=== PATIENT | male | born 1965 | race Caucasian/White ===

== ENCOUNTER 2017-05-14 17:36 | Observation (INO) | payer OTHER, SELFPAY ==
[2017-05-14 18:21] LABS: #Eosinphils 0.3 thou/uL (0.0-0.7); #Lymphocytes 2.8 thou/uL (1.20-3.40); #Monocytes 0.6 thou/uL (0.11-0.59); #Neutrophils 4.9 thou/uL (1.40-6.50); %Basophils 0.4 % (0.0-1.0); %Eosinophils 3.1 % (0.0-10.0); %Lymphocytes 32.2 % (21.0-51.0); %Monocytes 7.5 % (0.0-10.0); Hematocrit 41.2 % (42.0-52.0); Mean Platelet Volume 5.9 fL (7.4-10.4); Red Blood Cell (RBC) Count 4.64 mill/uL (4.70-6.10); White Blood Cell (WBC) Count 8.5 thou/uL (4.8-10.8)
[2017-05-14 18:39] LABS: ALT (SGPT) 21 U/L (8-55); AST (SGOT) 15 U/L (5-34); Alkaline Phosphatase 95 U/L (40-150); Anion Gap 10 mmol/L (10-20); BUN (Urea Nitrogen) 13 mg/dL (8.4-25.7); Bilirubin, Total 0.4 mg/dL (0.2-1.2); CK (CPK) 82 U/L (30-200); Calc. Creatinine Clearance 0 mL/min (70-130); Calcium 9.2 mg/dL (7.8-10.44); Carbon Dioxide 31 mmol/L (22-29); Chloride 102 mmol/L (98-107); Estimated GFR-MDRD Greater than 90; Globulin 2.8 g/dL (2.4-3.5); Lipase 24 U/L (8-78); Protein, Total 6.4 g/dL (6.0-8.3)
[2017-05-14] MEDS ORDERED: Nitroglycerin 2% Ointment 1 INCH/1 GM Packet ONE (18:41)
[2017-05-14 18:51] LABS: Troponin I 0.017 ng/mL (< 0.028)
--- NOTE | 2017-05-14 19:31 | RAD ---
PORTABLE AP CHEST: Date: 05-14-17 History: Chest pain. Comparison: 12-24-16 FINDINGS: Post-surgical changes related to CABG are again noted. Cardiac silhouette is magnified by projection . Pulmonary vasculature is within normal limits. The lungs remain clear. There has been no interval change when compared to the prior exam. IMPRESSION: Stable chest without evidence of an acute cardiopulmonary process. POS: [facility]
[2017-05-14] MEDS ORDERED: Acetaminophen 325 MG TAB PO PRN (21:00)
[2017-05-14] MEDS ORDERED: HYDROcodone/Acetaminophen 5/325 mg Tablet PO PRN ×2 (21:00)
[2017-05-14] MEDS ORDERED: Ondansetron ODT 4 MG TAB SL PRN (21:00)
[2017-05-14] MEDS ORDERED: Ondansetron HCl/PF 4 MG/2 ML Vial IVP PRN (21:00)
[2017-05-14] MEDS ORDERED: Nitroglycerin 2% Ointment 1 INCH/1 GM Packet TOP PRN (21:01)
[2017-05-14 21:40] LABS: Troponin I Less than 0.010 ng/mL (< 0.028)
[2017-05-14 22:16] VITALS: BMI 39.3
--- NOTE | 2017-05-14 22:42 | PDOC.EVN ---
Event Note - Event Note Event Note: Attending H&P I personally evaluated the patient and discussed the management with Dr. Gonzalez. I víctor reviewed her written H&P adn it is repeated by me. I agree with the History, Examination, Assessment and Plan documented above with any addition or exceptions noted below. Mr Woodall has known CAD and had severe chest pain with exertion today. We had thought there was syncope as well but with further questioning he denies ever losing consciousness. Cardiac enzymes are neg times 2. EKG shows only abnormal t waves. Patient is pain free currently. Will consult patient's Cardiology in the morning. Anticipate stress test.
[2017-05-15 05:13] LABS: Magnesium 1.9 mg/dL (1.6-2.6); Phosphorus 4.7 mg/dL (2.3-4.7)
--- NOTE | 2017-05-15 07:01 | PDOC.FM ---
- Subjective Subjective: Pt presented initially with chest pain with exertion relieved with nitro. Pt was in his stress test this morning during rounds. Has a hisotry of CAD s/p CABG in 2016. Prior stress test was >1 year ago before CABG. Pt has a very low TSH, being worked up in outpatient setting. - Objective Vital Signs & Weight: Vital Signs (12 hours) Temp Pulse Resp BP BP Pulse Ox 05/15/17 04:00 98 F 67 18 108/69 91 L 05/15/17 00:00 97.6 F 94 12 115/69 92 L 05/14/17 22:21 98.1 F 71 18 05/14/17 21:42 94 L 05/14/17 20:20 98.1 F 71 18 135/80 97 Weight Weight 107.139 kg I&O: 05/14/17 05/15/17 05/16/17 06:59 06:59 06:59 Intake Total 410 Output Total 450 Balance -40 Result Diagrams: 05/14/17 18:01 05/14/17 18:01 Phys Exam - Physical Examination Constitutional: NAD HEENT: PERRLA, moist MMs, sclera anicteric Respiratory: no wheezing, no rales, no rhonchi, clear to auscultation bilateral Cardiovascular: RRR, no significant murmur Gastrointestinal: soft, non-tender, no distention, positive bowel sounds Musculoskeletal: no edema, pulses present Neurological: non-focal, normal sensation Psychiatric: normal affect, A&O x 3 Dx/Plan (1) Atypical chest pain Code(s): R07.89 - OTHER CHEST PAIN Status: Acute (2) CAD (coronary artery disease) Code(s): I25.10 - ATHSCL HEART DISEASE OF [facility] CORONARY ARTERY W/O ANG PCTRS Status: Chronic (3) HLD (hyperlipidemia) Code(s): E78.5 - HYPERLIPIDEMIA, UNSPECIFIED Status: Chronic (4) HTN (hypertension) Code(s): I10 - ESSENTIAL (PRIMARY) HYPERTENSION Status: Chronic - Plan Plan: 51 yo male with CAD s/p CABG with stable angina admitted for ACS workup. 1.Stable angina from worsening CAD disease vs Hyperthyroidism Chest pain described as on exertion relieved by nitroglycerin with three negative trops and ST depression in one lead. Pt with low TSH and elevated free T4 and T3 in outpatient setting with thyroid scan pending. Plan: Repeat EKG, stress test , made NPO at midnight Will start patient on Inderol (propranolol) and dc carvedilol which has shown to be more effective in treating angina worsened by hyperthyroidism. 2.)HTN-hold bb for stress test, restart home meds, also will start Inderol. 3.)HLD-restart home meds 4.)CAD-s/p CABG 2015, see above. 5.)Hyperthyroidism-current workup undergoing in outpatient setting, which could be contributing to patient's chest pain. Will likely dc if patient has a negative stress test.
[2017-05-15] MEDS ORDERED: Aspirin 325 MG TAB PO SCH (09:00)
[2017-05-15] MEDS ORDERED: Lisinopril 20 MG TAB PO SCH (09:00)
[2017-05-15 11:53] VITALS: BP 130/75; TEMP 98.8
--- NOTE | 2017-05-15 11:55 | ADD-PRG ---
DATE OF SERVICE: 05/15/2017 This is an addendum to the note of Dr. Anya Blood. Mr. Woodall is a pleasant 51-year-old white male patient who was admitted with exertional chest pain. He has a history of CABG 1-2 years ago. He is undergoing a stress Myoview testing at this time. I f he does well on this test he will be discharged, otherwise, if abnormal, he will be retained for c ardiac catheterization. In any event, he is currently and has been throughout his hospital stay, pa in free. His troponins are negative x3. His admission EKG showed some nonspecific an ischemic T wa ves, but no acute ischemic changes. I also note that his TSH is less than 0.0025 and we will await the results of a free T4.
--- NOTE | 2017-05-15 15:02 | NM ---
NUCLEAR MEDICINE CARDIAC MYOCARDIAL PERFUSION SPECT EJECTION FRACTION STUDY WALL MOTION CINE: HISTORY: 51-year-old male with chest pain. TECHNIQUE: Number of days: 1 Rest study: Tc99m sestamibi (Cardiolite) dose: 11.0 mCi Pharmacologic stress: adenosine dose: 59.9 mg Stress study: Tc99m sestamibi (Cardiolite) dose: 32.0 mCi FINDINGS: CARDIAC (MYOCARDIAL PERFUSION) SPECT There is a fixed defect at the anteroseptal region near the apex. No reversible defect is identified . EJECTION FRACTION STUDY EF = 54% WALL MOTION CINE There is hypokinesis and paradoxical motion involving the apex and apicoseptal region. There is no significant interval change compared to 07-04-16. IMPRESSION: 1. No evidence of reversible ischemia. 2. Evidence of old infarction/scar at the apicoanteroseptal region. ANTONETTE Lucio POS: [facility]
[2017-05-15] MEDS ORDERED: Atorvastatin Calcium 40 MG TAB PO SCH (21:00)
[2017-05-15] MEDS ORDERED: Prazosin HCl 1 MG CAP PO SCH (21:00)
--- NOTE | 2017-05-16 06:17 | HP-2 ---
CODE STATUS: FULL. PRIMARY CARE PHYSICIAN: Dr. Anastacio Laboy. ATTENDING: Dr. Howard Lucas. RESIDENT: Katya Gonzalez D.O. HISTORIAN: Patient. CHIEF COMPLAINT: Chest pain. HISTORY OF PRESENT ILLNESS: The patient is a 51-year-old male with past medical history of coronary artery disease status post CABG in 2014, hypertension, hyperlipidemia, history of tobacco use and f amily history of [place] in brother and mother, presented with chest pain while on a walk. Pain was a sq ueezing type pain in the left chest with radiation, associated with shortness of breath. No diaphor esis, no nausea or vomiting. Does endorse angina which he may takes nitro for since his CABG in 6. After he has the chest pain, he stopped and cut down and called his for nitro, he became li ghtheaded. arrived with nitro, which partially relieved the pain and EMS arrived shortly after and transferred him to the hospital. He received nitropatch en route and with complete relief. PAST MEDICAL HISTORY: 1. Hypertension. 2. Hyperlipidemia. 3. Coronary artery disease, status post CABG 2 vessel and stents x3. 4. Pseudoseizures. 5. Depression. PAST SURGICAL HISTORY: 1. CABG x2 in 2016. 2. Umbilical hernia repair. 3. Cholecystectomy. ALLERGIES: None. MEDICATIONS: 1. Carvedilol 3.125 mg b.i.d. 2. Effexor 150 mg. 3. Atorvastatin 40 mg. 4. Lisinopril 20 mg. 5. Nitrostat p.r.n. FAMILY HISTORY: Three MIs in brother and alive, and mother of a heart attack in her 60s. SOCIAL HISTORY: Former tobacco user with [id number] history. No alcohol, drug use. REVIEW OF SYSTEMS: A 12-point review of systems was performed including general, eyes, ENT, respira tory, CV, GI, , skin, musculoskeletal, neurologic, psychiatric were positive other than those ment ioned in the HPI. PHYSICAL EXAMINATION: VITAL SIGNS: Blood pressure 110/70, pulse 73, respiratory rate 18, T-max 98.1, pulse ox 94% on room air. Current weight 106 kilograms. GENERAL: Patient is alert and oriented x4, no acute distress. He is obese. EYES: PERRLA, EOMI. ENT: Oropharynx within normal limits. Does have Mallampati 3. NECK: Supple, without lymphadenopathy. CARDIOVASCULAR: Regular rate and rhythm. No murmurs or gallops. Radial pulses 2+. RESPIRATORY: Normal effort, no retractions, clear to auscultation bilaterally. ABDOMEN: Soft, nontender. Bowel sounds present. EXTREMITIES: No clubbing, cyanosis or edema. MUSCULOSKELETAL: Structural within normal limits. NEUROLOGIC: No focal deficits. PSYCHIATRIC: Appropriate. LABORATORY DATA: CBC, white count 8.5, hemoglobin 13.0, hematocrit 41.2, platelets 309. Chemistrie s: Sodium 139, potassium 4.0, chloride 102, CO2 31, BUN 13, creatinine 0.74, glucose 122, calcium 9 .2, total protein 6.4, albumin 3.6, AST 15, ALT 21, alkaline phosphatase 95. CK 82, CK-MB 2.5, trop onin 0.017. IMAGING: EKG shows normal sinus rhythm, unknown changes of ST segment. Chest x-ray with no acute p rocess. ASSESSMENT AND PLAN: 1. Atypical chest pain. We will admit for telemetry observation. Cardiac enzymes negative x1. We will continue to trend q.3 hours. Initial EKG without any ST changes. Repeat EKG in the morning. Check a magnesium and phosphatase, TSH and fasting lipid panel. Heart score of 4. We will do a nu clear medicine stress test in the morning. We will hold beta surinder for that purpose. 2. Coronary artery disease. We will continue aspirin and statin. 3. Hyperlipidemia. Check fasting lipid panel. We will continue statin. 4. Hypertension, stable. Continue lisinopril and monitor. Will hold Coreg for now. 5. Depression. Continue home medications. DISPOSITION AND LENGTH OF HOSPITAL STAY: Less than 2 days. Symptomatic medications will be provided. History and physical exam as well as management was discussed with Dr. Howard Lucas.
--- NOTE | 2017-05-16 12:53 | DIS-2 ---
LOCATION: [facility] DATE OF ADMISSION: 05/14/2017 DATE OF DISCHARGE: 05/15/2017 ADMITTING RESIDENT: Katya Gonzalez DO. ADMITTING ATTENDING: Howard Lucas M.D. DISCHARGE RESIDENT: Anya Bishop MD DISCHARGE ATTENDING: Jesus Perez MD CONSULTATIONS: None. PROCEDURES: EKG shows normal sinus rhythm. Chest x-ray with no acute process. PRIMARY DIAGNOSIS: Atypical chest pain. SECONDARY DIAGNOSES: 1. Coronary artery disease. 2. Hypertension. 3. Depression. DISCHARGE MEDICATIONS: 1. Propranolol 40 mg orally twice a day. 2. Venlafaxine 300 mg oral every morning with breakfast. 3. Prazosin 7 mg oral every morning. 4. Atorvastatin 40 mg oral at bedtime. 5. Aspirin 81 mg orally daily. 6. Lisinopril 20 mg orally daily. 7. Nitroglycerin 0.4 mg sublingual every 5 minutes as needed. DISCONTINUED MEDICATIONS: Carvedilol 3.125 mg oral twice daily. HISTORY OF PRESENT ILLNESS AND HOSPITAL COURSE: This is a 51-year-old male with a past medical history of coronary artery disease, status post CABG in 2014 , hypertension, hyperlipidemia, history of tobacco use, and family history of [place] in the brother and mother presented with chest pain while walking. Pain was a squeezing type of pain in the left chest with radiation associated with shortness of breath. The patient denied diaphoresis, no nausea, or vomiting. The patient does endorse that he has angina, which he takes nitroglycerin for since his CABG in 2015. The patient took nitroglycerin upon feeling this chest pain, which partially relieved the chest pain. EMS arrived shortly after and transferred him to the hospital. The patient received nitroglycerin patch en route with complete relief of the chest pain. The patient's vital signs were within normal limits in the ER. The patient had labs drawn including a CBC which was normal and a chemistry reflecting normal electrolyte value, normal BUN and creatinine, normal glucose. The patient also had his cardiac enzymes drawn, CK-MB was 2.5 with the initial troponin being 0.017. As mentioned above , the patient's EKG showed normal sinus rhythm. The patient was admitted for atypical chest pain. 1. Atypical chest pain: The patient was admitted for atypical chest pain. Again, this pain was left-sided, was on exertion, and relieved with nitroglycerin; however, the patient's troponins were trended x3, which were all negative. The patient's initial EKG did not show any ST changes. The patient was made n.p.o. to prepare for a stress test in the morning to evaluate for new and/or worsening of the patient's coronary artery disease. A TSH, magnesium and phosphorus, and fasting lipid panel were ordered. The patient's HEART score was at 4. The patient's beta surinder was held in anticipation of the procedure. As mentioned before, the patient's troponins x3 were negative. The patient's CK-MB was normal. The patient's CK was normal. The patient was found to have a low TSH, it was 0.0025; however, this is known to the clinic. The patient goes to [facility] and sees Dr. Cronin. The patient's hyperthyroidism is currently being worked up in the outpatient setting; however , hyperthyroidism can be an etiology for chest pain and this patient was found to have a stress test which did not show any new or acute prophecies in comparison to his stress test that he obtained approximately one year ago prior to receiving his CABG. Therefore, it is likely that this patient's chest pain is exacerbated by his hyperthyroidism. The patient, after receiving the results of the stress test, which once again stated that there is no evidence of reversible ischemia and just evidence of an old infarct or scar at the apical anterior septal region, which has no significant interval change compared to his stress test on 07/04/2016. The patient was discharged after receiving these results. It was discussed with the patient the importance of continuing to have his thyroid evaluated in the outpatient setting as it can contribute to cardiac angina. The patient's beta surinder was switched from carvedilol to propranolol because studies have shown that propranolol can help to alleviate chest pain due to hyperthyroidism. This information was relayed to the patient and the patient understood. 2. Coronary artery disease. The patient's aspirin and statin were continued. 3. Hyperlipidemia. A fasting lipid panel was rechecked. The patient's atherosclerotic cardiovascular disease risk was 3.2 reflecting adequate treatment with a statin that he is currently on. 4. Depression. The patient was not having active suicidal ideation, homicidal ideation, or auditory verbal hallucinations. The patient was not exemplifying symptoms of a major depressive episode. The patient's home medication was continued. DISPOSITION: Stable. DISCHARGE INSTRUCTIONS: The patient was discharged home on a heart-healthy diet , activity as tolerated with close followup at [facility] especially in regard to the patient's hyperthyroid disease. BHASKAR
--- NOTE | 2017-05-20 12:00 | STRESS ---
Acquisition Time: 2017-05-15 09:39:15 Total Exercise Time: 00:04:00 Test Indications: CHEST PAIN Medications: Protocol: ADENOSINE Max HR: 078 BPM 46% of Pred: 169 BPM Max BP: 118/078 mmHG Max Work Load: 1.0 METS THE PATIENT WAS INJECTED WITH ADENOSINE. HE DID DEVELOP CHEST PAIN. THERE WAS NO SIGNIFICANT ST DEPRESSION. AWAIT NUCLEAR IMAGES FOR DEFINITIVE DIAGNOSIS. Confirmed by CHARISSE BOTELLO ([id number]), school physical therapist EMILY ISBELL ([id number]) on 05/20/2017 11:59:42 AM Referred By: Jayson FOX Confirmed By:CHARISSE BOTELLO
== END 2017-05-15 14:44 | disposition home or self-care (01) ==
LOC: ERS 17:36 → 2SW 19:30
PROVIDERS: ADMIT Family Medicine; ATTEND Family Medicine
DX: R07.89 Other chest pain (principal); I25.119 Atherosclerotic heart disease of native coronary artery with unspecified angina pectoris; I10 Essential (primary) hypertension; F32.9 Major depressive disorder, single episode, unspecified; E78.5 Hyperlipidemia, unspecified; Z79.82 Long term (current) use of aspirin; Z79.899 Other long term (current) drug therapy; Z88.1 Allergy status to other antibiotic agents; Z88.8 Allergy status to other drugs, medicaments and biological substances; Z95.1 Presence of aortocoronary bypass graft; Z90.49 Acquired absence of other specified parts of digestive tract; Z98.890 Other specified postprocedural states; Z87.891 Personal history of nicotine dependence; Z86.69 Personal history of other diseases of the nervous system and sense organs; Z82.49 Family history of ischemic heart disease and other diseases of the circulatory system
CPT/HCPCS: 36415; 71010; 78452; 80053; 80061; 82553; 83690; 83735; 84100; 84443; 84484; 85025; 93005; 93010; 93017; 94760; A9500; G0378; J0153

== ENCOUNTER 2017-11-12 13:27 | Observation (INO) | payer OTHER ==
[2017-11-12 14:01] LABS: #Eosinphils 0.1 thou/uL (0.0-0.7); #Lymphocytes 2.1 thou/uL (1.20-3.40); #Monocytes 0.5 thou/uL (0.11-0.59); #Neutrophils 3.8 thou/uL (1.40-6.50); %Basophils 0.1 % (0.0-1.0); %Lymphocytes 32.5 % (21.0-51.0); %Monocytes 6.8 % (0.0-10.0); %Neutrophils 58.6 % (42.0-75.0); Hemoglobin 12.2 g/dL (14.0-18.0); Mean Corpuscular HGB CONC 32.9 g/dL (32.0-36.0); Mean Corpuscular Hemoglobin 29.7 pg (27.0-31.0); Mean Corpuscular Volume 90.2 fl (80.0-94.0); Mean Platelet Volume 5.9 fL (7.4-10.4); Platelet Count 250 thou/uL (130-400); RBC Distribution Width 12.2 % (11.5-14.5); Red Blood Cell (RBC) Count 4.11 mill/uL (4.70-6.10); White Blood Cell (WBC) Count 6.5 thou/uL (4.8-10.8)
[2017-11-12 14:25] LABS: ALT (SGPT) 25 U/L (8-55); AST (SGOT) 16 U/L (5-34); Albumin 3.8 g/dL (3.5-5.0); Alkaline Phosphatase 68 U/L (40-150); Anion Gap 8 mmol/L (10-20); BUN (Urea Nitrogen) 14 mg/dL (8.4-25.7); Bilirubin, Total 0.4 mg/dL (0.2-1.2); Calc. Creatinine Clearance 0 mL/min (70-130); Calcium 8.9 mg/dL (7.8-10.44); Carbon Dioxide 29 mmol/L (22-29); Chloride 103 mmol/L (98-107); Estimated GFR-MDRD Greater than 90; Globulin 2.2 g/dL (2.4-3.5); Glucose 115 mg/dL (70-105); Sodium 136 mmol/L (136-145)
[2017-11-12 14:27] LABS: INR-International Normal Ratio 1.1; Prothrombin Time 14.6 SEC (12.0-14.7)
[2017-11-12 14:28] LABS: CKMB 3.6 ng/mL (0-6.6); Troponin I Less than 0.010 ng/mL (< 0.028)
--- NOTE | 2017-11-12 14:50 | CT ---
NONCONTRAST HEAD CT: Date: 11/12/17 COMPARISON: 04/07/17. HISTORY: Stroke-like symptoms. Intermittent paresthesia. 1 hour of left-sided facial droop. TECHNIQUE: Noncontrast head CT is performed from skull base to skull vertex. FINDINGS: No parenchymal hemorrhage or extra-axial hematoma. No midline shift. Basilar cisterns are patent. Bra in volume is age-appropriate. Cortical mayorga-white matter differentiation is preserved. Ventricles and sulci are patent and symmetric. Adequate aeration of the sinuses and mastoid air cells. Calvarium is intact. There is atherosclerosis of intracranial carotid arteries. IMPRESSION: No acute intracranial process. Results of study discussed with Dr. Barboza on 11/12/17 at 1408 hours. CODE CR. POS: [facility]
--- NOTE | 2017-11-12 14:52 | RAD ---
SINGLE VIEW CHEST: Date: 11/12/17 INDICATION: Emergency examination. History of syncopal episode. COMPARISON: Prior exam dated 05/14/17. FINDINGS: There is stable mild cardiomegaly. Midline sternotomy changes are stable. No acute osseous abnormalit ies. Lungs are clear. No pleural effusion or pneumothorax is evident. IMPRESSION: No acute abnormality. POS: [facility]
--- NOTE | 2017-11-12 15:17 | CT ---
CT ANGIOGRAM OF THE HEAD AND NECK: HISTORY: Acute left facial droop. COMPARISON: None. TECHNIQUE: CT angiogram of the head and neck is performed of the axial plane. Sagittal and coronal 3-dimensiona l reformatted images are submitted for interpretation. FINDINGS: There is appropriate post contrast mayorga-white matter differentiation on the head CT. Bilateral ocula r lenses are appropriately located. Both globes are intact. Retrobulbar fat is preserved. Symmetri c attenuation of the topic nerve and ocular rectus muscles. Adequate aeration of the sinuses and mastoid air cells. Aerodigestive tract is patent. No mucosal abnormality. No obvious masses in the neural cavity. Mid line fatty raphae of the tongue is preserved. Epiglottis has a normal caliber. Preepiglottic fat is preserved. No prevertebral soft tissue swelling or mass. Symmetric attenuation of the sternocleidomastoid muscl es. Symmetric attenuation of the parotid and submandibular glands. Thyroid gland is unremarkable. No evidence of lymphadenopathy by size criteria. The cervical spine is patent. There are varying degrees of stenosis due to degenerative change. Imelda luation is limited by technique. Straightening of the normal cervical lordosis is identified. No fr acture. Upper mediastinum is unremarkable. Patchy ground-glass opacities in the upper lobes, nonspecific. CT ANGIOGRAM: There is appropriate enhancement and luminal diameter of the aortic arch. RIGHT CAROTID: The right carotid artery origin, common carotid artery, carotid bifurcation, and internal carotid art devon have appropriate enhancement and luminal diameter. LEFT CAROTID: The left carotid artery origin, common carotid artery, carotid bifurcation, and internal carotid eder ry have appropriate enhancement and luminal diameter. Note, there is medial deviation of both graduate intern al carotid arteries which causes mass effect upon the hypopharynx/posterior oropharynx. Both cervical vertebral bodies are patent. No significant stenosis. The left vertebral artery is mo re dominant. Both subclavian arteries are unremarkable. CT ANGIOGRAM OF THE HEAD: There is symmetric enhancement and luminal diameter of the intracranial internal carotid arteries. ANTERIOR CIRCULATION: Symmetric enhancement and luminal diameter of the A1 and M1 segments. Proximal MCA branches and prox imal A2 segments are unremarkable. POSTERIOR CIRCULATION: Both PICA artery origins are unremarkable. Both vertebral arteries supply a normal-appearing basilar artery. Both P1 segments have symmetric enhancement and luminal diameter. IMPRESSION: Unremarkable CT angiogram of the head and neck. No significant stenosis. Results of the study discussed with Dr. Barboza 11/12/17 at 2:29 p.m. CODE CR POS: [facility]
--- NOTE | 2017-11-12 15:18 | PDOC.FPRHP ---
- History of Present Illness Chief Complaint: Dizziness History of Present Illness: 52 yo male w/ pmh of CAD sp 3V CABG, BPH came in with recent hx of dizziness and low bp today. On way to ER b/c BP was low and was feeling dizzy. Was having spotty vision and floaters which is persistent throughout the day. Was at Dr. Webber's office and was told to come in if SBP got less than 90. Patient was waiting on bus to come to ER, and blacked out. Dizziness has lasted for approximately 3 weeks. Neurology referral was in progress from clinic. CT of head in past has been negative. Concern for migraines as patient has been having recurrent headaches associated with nausea. Patient was taking trileptal from [facility]. Stopped taking medication due to nausea and vomiting 4 days ago which has improved since stopping medication. Denies chest pain, shortness of breath, auras, worsening of headache, numbness or tingling. No changes in speech , but notable change in concentration. Denies diarrhea, constipation. Endorses clamminess which was present this past week while seeing PCP in clinic. Got up to see if bus was there. When bus stopped, he feels he moved too fast, and bus step was off the curb. He misjudged the step and fell. LOC after fall, but did not pass out before the fall. Patient remembers all of the events. 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 - Allergies/Adverse Reactions Allergies Allergy/AdvReac Type Severity Reaction Status Date / Time ciprofloxacin [From Cipro] Allergy Verified 07/02/16 14:55 promethazine [From Phenergan] Allergy Verified 07/02/16 14:55 - Home Medications Medication Instructions Recorded Confirmed Type Aspirin [Aspirin Chewable Tablet] 81 mg PO DAILY 07/02/16 11/12/17 History Atorvastatin Calcium 80 mg PO HS 07/02/16 11/12/17 History Lisinopril 20 mg PO DAILY 07/02/16 11/12/17 History Prazosin HCl 5 mg PO QPM 07/02/16 11/12/17 History Venlafaxine HCl 150 mg PO QAM-WM 07/02/16 11/12/17 History Betamethasone 0.1% Cream [Valisone 1 applic TOP BID 11/12/17 11/12/17 History 0.1% Cream] Carvedilol [Coreg] 3.125 mg PO BID 11/12/17 11/12/17 History Docusate Sodium [Stool Softener] 100 mg PO DAILY 11/12/17 11/12/17 History Oxybutynin ER [Ditropan XL] 10 mg PO DAILY 11/12/17 11/12/17 History Tamsulosin HCl [Flomax] 0.4 mg PO DAILY 11/12/17 11/12/17 History - History PMHx: [place] s/p 3 stents and CABG x2, Hx Gimenez's Palsy (2010), Hypothyroidism, ANALY not currently on CPAP, BPH PSHx: CABG, Cholecystectomy, Hernia repair, Stents x3 FHx: Mom - Aortic valve replacement, Brother - 3 AZ's; unknown history on father 's side Social: Endorses 30 year smoking history. Quit 2 years ago due to [place]. Denies alcohol or illicit drug use. - Review of Systems General: denies: fever/chills, weight/appetite/sleep changes Eyes: reports: vision changes (spotty vision) ENT: denies: nasal congestion, rhinorrhea Respiratory: denies: cough, shortness of breath Cardiovascular: denies: chest pain, palpitation, edema Gastrointestinal: reports: nausea, vomiting. denies: diarrhea, constipation, abdominal pain Genitourinary: denies: incontinence, dysuria Skin: denies: rashes, jaundice Musculoskeletal: denies: pain, tenderness, stiffness Neurological: reports: syncope. denies: numbness, seizure - Vital signs BP: [143/65] HR: [68] RR: [16] Tmax: [98.7 F] Pox: [99]% on [1.5 L] Wt: [ 111.58 kg] - Physical Exam Constitutional: NAD, awake, alert and oriented, well developed HEENT: normocephalic and atraumatic, PERRLA, conjunctiva clear, TM's clear and intact, grossly normal hearing, normal nasal mucosa Neck: supple, trachea midline, no LAD, no JVD, no bruits Chest: no-tender to palpation Heart: RRR, normal S1/S2, no murmurs/rubs/gallops, pulses present Lungs: CTAB, no respiratory distress, good air movement, no wheezing Abdomen: soft, non-tender, bowel sounds present, no masses/distention, no hernias Musculoskeletal: normal structure, ROM grossly normal -Neurological: Patient has decreased sensation along L. face, arm and leg. Strength 4/5 in his upper extremity and lower extremity. CN11 weaker on left. CN7- facial droop noted on left. Possible CN 4-6 defecit with L. eye drooping toward midline. on phone denies any recent dysarthria or speech changes Skin: no rash/lesions, good turgor Heme/Lymphatic: no unusual bruising or bleeding Psychiatric: normal mood and affect, good judgment and insight, intact recent and remote memory FMR H&P: Results - Labs Result Diagrams: 11/12/17 13:52 11/12/17 13:52 Lab results: WBC 6.5 thou/uL (4.8-10.8) 11/12/17 13:52 Hgb 12.2 g/dL (14.0-18.0) L 11/12/17 13:52 Hct 37.1 % (42.0-52.0) L 11/12/17 13:52 MCV 90.2 fl (80.0-94.0) 11/12/17 13:52 Plt Count 250 thou/uL (130-400) 11/12/17 13:52 Neutrophils % 58.6 % (42.0-75.0) 11/12/17 13:52 Sodium 136 mmol/L (136-145) 11/12/17 13:52 Potassium 4.0 mmol/L (3.5-5.1) 11/12/17 13:52 Chloride 103 mmol/L (98-107) 11/12/17 13:52 Carbon Dioxide 29 mmol/L (22-29) 11/12/17 13:52 BUN 14 mg/dL (8.4-25.7) 11/12/17 13:52 Creatinine 0.87 mg/dL (0.6-1.3) 11/12/17 13:52 Glucose 115 mg/dL (70-105) H 11/12/17 13:52 Calcium 8.9 mg/dL (7.8-10.44) 11/12/17 13:52 Total Bilirubin 0.4 mg/dL (0.2-1.2) 11/12/17 13:52 AST 16 U/L (5-34) 11/12/17 13:52 ALT 25 U/L (8-55) 11/12/17 13:52 Alkaline Phosphatase 68 U/L (40-150) 11/12/17 13:52 CK-MB (CK-2) 3.6 ng/mL (0-6.6) 11/12/17 13:52 Serum Total Protein 6.0 g/dL (6.0-8.3) 11/12/17 13:52 Albumin 3.8 g/dL (3.5-5.0) 11/12/17 13:52 - Radiology Interpretation CT scan - head Status: image reviewed by me, report reviewed by me (CT Head- no acute intracranial Process CTA Head and Neck- Unremarkable angiogram. No stenosis noted) FMR H&P: A/P - Problem List (1) TIA (transient ischemic attack) Current Visit: Yes Status: Acute (2) Stroke Current Visit: Yes Status: Acute Code(s): I63.9 - CEREBRAL INFARCTION, UNSPECIFIED Qualifiers: Laterality of affected vessel: left (3) Dizziness Current Visit: Yes Status: Acute Code(s): R42 - DIZZINESS AND GIDDINESS (4) CAD (coronary artery disease) Current Visit: No Status: Chronic Code(s): I25.10 - ATHSCL HEART DISEASE OF [place] CORONARY ARTERY W/O ANG PCTRS Qualifiers: Coronary Disease-Associated Artery/Lesion type: bypass graft [place] vs. transplanted heart: [place] heart Associated angina: without angina Qualified Code(s): I25.810 - Atherosclerosis of coronary artery bypass graft(s) without angina pectoris (5) HLD (hyperlipidemia) Current Visit: No Status: Chronic Code(s): E78.5 - HYPERLIPIDEMIA, UNSPECIFIED (6) HTN (hypertension) Current Visit: No Status: Chronic Code(s): I10 - ESSENTIAL (PRIMARY) HYPERTENSION (7) Hypothyroidism Current Visit: Yes Status: Chronic Code(s): E03.9 - HYPOTHYROIDISM, UNSPECIFIED (8) BPH (benign prostatic hyperplasia) Current Visit: Yes Status: Chronic Code(s): N40.0 - BENIGN PROSTATIC HYPERPLASIA WITHOUT LOWER URINRY TRACT SYMP (9) Bipolar disorder Current Visit: Yes Status: Chronic Code(s): F31.9 - BIPOLAR DISORDER, UNSPECIFIED - Plan 1)TIA/Stroke- having new left sided defecits. Hx of CAD and 3 week hx of dizziness -Possible hemiplegic migraine -Consult Neurology- Nithya- will follow recs -CTA head/neck- negative -Will get ECHO and MRI brain -Neurochecks -ASA and statin. -FLP pending- may want to increase dose of statin. Will check HgbA1c -Tele monitoring. 2)HTN -holding all htn medicine and bph medicines for next 24 hours to allow for permissive htn 3)HLD -FLP pending. continue home statin 4) Recent dizziness -Neurology consulted. -Possible recent syncopal episode. Orthostatics pending. -MRI pending -Possibly migraine related. Tylenol for pain 5) Hypothyroidism -Pt recent TSH at outside clinic around 10. Was started on levothyroxine but patient was not taking medicine. Will recheck TSH and start medication at this time. 6) BPH -holding bph medicines for next 24 hours due to effect on blood pressure. 7)CAD with hx of 3V CABG -Holding HTN medicines -Tele monitoring 8)Bipolar Disorder -Recenlty put on Trileptal by [facility] but has not been taking due to nausea and vomiting. -continue other home meds FMR H&P: Upper Level - Pertinent history 52 yo male w/ pmh of CAD sp 3V CABG, BPH presented to ED after episode of syncope while waiting to board a bus on his way to the cardiology office. He reports that he has had several episodes of syncope most recently about 4-5 mo ago. Reports that he has been having a bad headaches posteriorly for about 3 weeks. Saw his PCP about this and was supposed to follow up with neuro but hasn' t. No hx of migraines, denies light and sound sensitivity. 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 Reports that he has also been having L sided facial numbness, L arm weakness and b/l LE tingling for the same amount of time as the headache has been present. See internal audit director HPI for further details. - Pertinent findings general: obese, AOX3, NAD cardiac: bradycardic lungs: CTA neuro: CN II-IV intact, V reduced on L side, -XII intact, +dysdiaochokinesia with L hand, reduced heel puga dexterity of L heel, neg Romberg - Plan Date/Time: 11/12/17 1515 Pertinent A/P: 1. r/o CVA- vs atypical migraine given duration of symptoms. CT head neg. Will order CTA head/neck, MRI brain, echo, consult stroke team. NPO pending swallow study. Will give migraine cocktail to see if they alleviate his symptoms. Risk stratify with lab work TSH, A1c, Mg, Phos. Hx of Gimenez's palsy 2. CAD-continue home meds, pt has had recent neg stress, learning to cope with chronic angina has been following with Dr. Webber 3. Hypothyroidism-most recent TSH was 10, has not started synthroid 4. Hx of seizures-not on antiepileptics as he thought these were causing his headache-will hold for now, pt to follow up with neuro 5. Bipolar/PTSD-continue home meds 6. Htn 7. Hld I, Mary, have evaluated this patient and agree with findings/plan as outlined by internal audit director resident. Pertinent changes/additions are listed here. Attending Addendum - Attending Addendum Date/Time: 11/13/17 1113 I personally evaluated the patient and discussed the management with Dr. Rocha. I agree with the History, Examination, Assessment and Plan documented above with any addition or exceptions noted below. 52 y.o. WM with h/o Bipolar, Gimenez's Palsy, Hypothyroidism, CAD s/p CABG, BPH with obstructive symptoms--treated recently with Oxybutinin and Tamsulosin. Here with eval of syncope in light of recent persistent BARKLEY"s and hypotension. DDx: TIA vs. Migraine. Possible medication SE.
[2017-11-12] MEDS ORDERED: Enoxaparin Sodium 40 MG/0.4 ML SYRINGE SC SCH (17:18)
[2017-11-12] MEDS ORDERED: Aspirin 81 mg Enteric Coated Tablet PO SCH (17:18)
[2017-11-12] MEDS ORDERED: Ketorolac Tromethamine 30 MG/ML VIAL IVP SCH (17:18)
[2017-11-12] MEDS ORDERED: diphenhydrAMINE 25 MG CAP PO SCH (17:18)
[2017-11-12] MEDS ORDERED: Metoclopramide HCl 10 MG TAB PO SCH (17:18)
[2017-11-12] MEDS ORDERED: hydrALAZINE 20 MG/ML VIAL SLOW IVP PRN (17:18)
[2017-11-12 17:25] VITALS: BMI 42.4
[2017-11-12 17:38] LABS: Hemoglobin A1c 5.3 % (4.0-6.0)
[2017-11-12 18:05] LABS: Troponin I Less than 0.010 ng/mL (< 0.028)
[2017-11-12] MEDS ORDERED: Atorvastatin Calcium 40 MG TAB PO SCH (21:00)
[2017-11-12 21:07] LABS: Troponin I Less than 0.010 ng/mL (< 0.028)
--- NOTE | 2017-11-13 05:44 | PDOC.FM ---
- Subjective Subjective: Patient doing well this AM. No significant overnight events. NIH score has been between 2-3. Patient still endorses right sided weakness. He states that it is better this morning, but he thinks it will probably just get worse throughout the day. He denies any headache this morning. He does state his headaches are normally worse in the mornings and he describes a band-like pain originating from suboccipital region when the headaches are present. Nothing has seemed to help the headaches in the past, but using O2 at night prevented him from waking up with a headache. Of note, patient does have untreated sleep apnea. Patient was able to transfer to chair without any assistance. - Objective MAR Reviewed: Yes Vital Signs & Weight: Vital Signs (12 hours) Temp Pulse Resp BP BP Pulse Ox 11/13/17 03:58 98.1 F 77 18 131/77 96 11/12/17 23:45 98.0 F 65 16 147/84 H 95 11/12/17 20:01 98.0 F 99 16 117/68 91 L 11/12/17 20:00 98.0 F 65 16 147/84 H 117/68 91 L Weight Weight 115.666 kg I&O: 11/11/17 11/12/17 11/13/17 06:59 06:59 06:59 Output Total 0 Balance 0 Result Diagrams: 11/12/17 13:52 11/12/17 13:52 EKG Reviewed by me: No Radiology Reviewed by me: Yes <Mindy Rocha - Last Filed: 11/13/17 08:17> - Objective Vital Signs & Weight: Vital Signs (12 hours) Temp Pulse Pulse Pulse Pulse Pulse Resp 11/13/17 12:00 97.7 F 70 16 11/13/17 08:51 59 L 60 62 60 11/13/17 07:30 98.2 F 58 L 20 11/13/17 07:00 98.1 F 77 18 11/13/17 03:58 98.1 F 77 18 BP BP BP BP BP BP Pulse Ox 11/13/17 12:00 164/90 H 95 11/13/17 08:51 150/92 H 161/95 H 163/106 H 152/88 H 11/13/17 07:30 142/85 H 96 11/13/17 07:00 131/77 96 11/13/17 03:58 131/77 96 Weight Weight 115.666 kg I&O: 11/12/17 11/13/17 11/14/17 06:59 06:59 06:59 Intake Total 500 Output Total 650 Balance -150 Result Diagrams: 11/12/17 13:52 11/12/17 13:52 <AyannaGiuliana - Last Filed: 11/13/17 13:17> Phys Exam - Physical Examination Constitutional: NAD HEENT: PERRLA, moist MMs Neck: supple Respiratory: clear to auscultation bilateral Cardiovascular: RRR, no significant murmur Gastrointestinal: soft, non-tender, positive bowel sounds Musculoskeletal: no edema, pulses present Strength 4/5 on LUE and LLE; uncertain if poor pt effort Patient unable to puff out cheek on left, no dysarthria, no facial droop. Psychiatric: normal affect Skin: no rash, cap refill <2 seconds <Mindy Rocha - Last Filed: 11/13/17 08:17> Dx/Plan (1) Stroke Code(s): I63.9 - CEREBRAL INFARCTION, UNSPECIFIED Status: Acute QualifierTitle: Laterality of affected vessel: left (2) BPH (benign prostatic hyperplasia) Code(s): N40.0 - BENIGN PROSTATIC HYPERPLASIA WITHOUT LOWER URINRY TRACT SYMP Status: Chronic (3) Bipolar disorder Code(s): F31.9 - BIPOLAR DISORDER, UNSPECIFIED Status: Chronic (4) Hypothyroidism Code(s): E03.9 - HYPOTHYROIDISM, UNSPECIFIED Status: Chronic (5) CAD (coronary artery disease) Code(s): I25.10 - ATHSCL HEART DISEASE OF [place] CORONARY ARTERY W/O ANG PCTRS Status: Chronic QualifierTitle: Coronary Disease-Associated Artery/Lesion type: bypass graft [place] vs. transplanted heart: [place] heart Associated angina: without angina Qualified Code(s): I25.810 - Atherosclerosis of coronary artery bypass graft(s) without angina pectoris (6) HLD (hyperlipidemia) Code(s): E78.5 - HYPERLIPIDEMIA, UNSPECIFIED Status: Chronic (7) HTN (hypertension) Code(s): I10 - ESSENTIAL (PRIMARY) HYPERTENSION Status: Chronic - Plan Plan: 1) TIA/Stroke- having new left sided deficits. Hx of CAD and 3 week hx of dizziness. -Possible hemiplegic migraine -Neurology (Nithya) consulted; appreciate recs -CTA head/neck negative -Echo pending -MRI negative -Neurochecks q4H -NIH score of 2-3 -Continue ASA and statin -HgA1c 5.3 -Tele monitoring 2) HTN -Holding all htn medicine and bph medicines for next 24 hours to allow for permissive htn 3) HLD -ASCVD of 5.3% -Continue home statin 4) Dizziness with possible syncopal episode -Neurology consulted; appreciate recs -Possible recent syncopal episode -Orthostatics pending -MRI negative for acute infarct -Possibly migraine related; migraine protocol given -Tylenol for pain -No post-ictal state to suggest seizure -Echo pending 5) Hypothyroidism -Pt recent TSH at outside clinic around 10 -Was started on levothyroxine but patient was not taking medication -Will recheck TSH and start medication at this time 6) BPH -Holding BPH medications for next 24 hours due to effect on blood pressure. 7) CAD with hx of 3V CABG -Holding HTN medications -Tele monitoring 8) Bipolar Disorder -Recenlty put on Trileptal by [facility] but has not been taking due to nausea and vomiting -Continue other home meds Dispo: Workup has been negative for stroke. May be migraine related. Will await neurology recommendations and echo results. <Mindy Rocha - Last Filed: 11/13/17 08:17> Attending Addendum - Attending Addendum Date/Time: 11/13/17 1316 I personally evaluated the patient and discussed the management with Dr. Rocha. I agree with the History, Examination, Assessment and Plan documented above with any addition or exceptions noted below. The patient's MRI was negative for stroke. He is working with pt. This may be more of an atypical migraine. Will await recs from Dr. Gaxiola. Will restart home medications. <Giuliana Urena - Last Filed: 11/13/17 13:17>
[2017-11-13 05:48] LABS: Cardiac Risk 2.7 (Less than 4.5)
--- NOTE | 2017-11-13 08:24 | MRI ---
BRAIN MRI WITHOUT CONTRAST: HISTORY: Left-sided weakness. Left facial droop. Stroke. COMPARISON: None. TECHNIQUE: Brain MRI is performed without intravenous Gadolinium administration. Multisequential, multiplanar i maging is performed. FINDINGS: No hemorrhage on the axial gradient echo sequence. Calvarium has a normal T1 marrow signal intensity. Midline brain parenchymal structures are unremark able. Mucosal disease involving both maxillary sinuses. Central arterial flow voids are maintained. No re stricted diffusion. Mild mucosal disease of the maxillary sinuses is noted, the right greater than the left. There are s mall mucous retention cysts in the left maxillary sinus. Partially empty sella is identified. IMPRESSION: Absent restricted diffusion. No acute infarct. POS: [facility]
[2017-11-13] MEDS ORDERED: Cyclobenzaprine 10 MG TAB PO SCH (08:45)
[2017-11-13] MEDS ORDERED: Enoxaparin Sodium 40 MG/0.4 ML SYRINGE SC SCH (09:00)
[2017-11-13] MEDS ORDERED: Aspirin 81 mg Enteric Coated Tablet PO SCH (09:00)
[2017-11-13] MEDS ORDERED: Levothyroxine Sodium 50 MCG TAB PO SCH (09:00)
[2017-11-13] MEDS ORDERED: Acetaminophen 325 MG TAB PO PRN (09:47)
[2017-11-13 16:11] VITALS: BP 150/94; TEMP 98.1
--- NOTE | 2017-11-13 19:41 | CON ---
DATE OF CONSULTATION: 11/13/2017 CONSULTING PHYSICIAN: [facility]. 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 PLAN: 1. Topamax 50 mg twice a day. 2. Maxalt 10 mg twice a day as needed for headache. Mr. Woodall is a middle-aged gentleman with a past history of hypertension. Over the last 3 weeks, he has been having daily headache. They usually start in the occipital area and radiate forward. They are associated with some dizziness. He has not had any nausea or vomiting, but he reports being quit e debilitated by the intensity of the pain. These have been occurring both day and night. He did no t have any provoking illness or injury. He came into the hospital for evaluation. A CTA of the mag[place] tids and cerebral vessels were both unremarkable. He had an MRI of the brain, which was normal. He has a history of hypothyroidism, has an elevated TSH level. His lipid panel was unremarkable. PAST MEDICAL HISTORY: Otherwise, positive for some psychiatric issues. MEDICATION LIST: Lisinopril, Effexor, atorvastatin, Coreg, prazosin and aspirin. ALLERGIES: CIPRO and PHENERGAN. SOCIAL HISTORY: Unremarkable. FAMILY HISTORY: Negative for migraine. REVIEW OF SYSTEMS: Positive for past history of Gimenez's palsy. PHYSICAL EXAMINATION: GENERAL: He is an obese middle-aged man lying in bed in no distress. VITAL SIGNS: Stable. He is afebrile. HEENT: Pupils equal and reactive. Conjunctivae clear. Oropharynx is clear. NECK: Supple. EXTREMITIES: No edema. NEUROLOGIC: He is alert, appropriate. His speech is fluent and clear. His exam is nonfocal. SUMMARY: This is a middle-aged man with complaints of daily debilitating headache for the last 3 wee ks with nothing remarkable on his workup. I suspect that this could be vascular in origin that are p sychogenic. I would be happy to follow up with him as an outpatient.
[2017-11-13] MEDS ORDERED: Betamethasone 0.1% Cream 45 GM TUBE TOP SCH (21:00)
[2017-11-13] MEDS ORDERED: Prazosin HCl 1 MG CAP PO SCH (21:00)
[2017-11-13] MEDS ORDERED: Carvedilol 3.125 MG TAB PO SCH (21:00)
[2017-11-13] MEDS ORDERED: Atorvastatin Calcium 40 MG TAB PO SCH (21:00)
[2017-11-14] MEDS ORDERED: Levothyroxine Sodium 50 MCG TAB PO SCH (06:00)
[2017-11-14] MEDS ORDERED: Tamsulosin HCl 0.4 MG CAP PO SCH (09:00)
[2017-11-14] MEDS ORDERED: Docusate 100 MG CAP PO SCH (09:00)
[2017-11-14] MEDS ORDERED: Oxybutynin ER 5 MG TAB PO SCH (09:00)
[2017-11-14] MEDS ORDERED: Lisinopril 20 MG TAB PO SCH (09:00)
--- NOTE | 2017-11-14 14:38 | DIS-2 ---
DATE OF ADMISSION: 11/12/2017 DATE OF DISCHARGE: 11/13/2017 ADMITTING ATTENDING: Dr. Jose Fowler. DISCHARGE ATTENDING: Dr. Giuliana Urena. RESIDENT: Dr. Mindy Rocha CONSULTATIONS: 1. Neurology, Dr. Jurgen Gaxiola 2. Stroke team. INPATIENT PROCEDURES/OPERATIONS: 1. Brain CT: No acute intracranial process. 2. CT angiography: Unremarkable CT angiogram of the head and neck. No significant stenosis. 3. CT [place] angiogram with contrast: Unremarkable CT angiogram of the head and neck: No significant stenosis. 4. Chest x-ray, no acute abnormality. 5. Brain MRI; absent restricted diffusion. No acute infarct. PRIMARY DIAGNOSIS: Probable cluster migraine. SECONDARY DIAGNOSES: 1. Hypertension. 2. Hyperlipidemia. 3. Hypothyroidism. 4. Benign prostatic hypertrophy. 5. Coronary artery disease with history of 3-vessel coronary artery bypass graft. 6. Bipolar disorder. DISCHARGE MEDICATIONS: 1. Levothyroxine 50 mcg oral q.a.m. 2. Maxalt 10 mg oral twice daily as needed for headache. 3. Topamax 50 mg oral twice daily. 4. Venlafaxine 150 mg oral every morning with breakfast. 5. Prazosin 5 mg every evening. 6. Atorvastatin calcium 80 mg oral at bedtime. 7. Aspirin 81 mg oral daily. 8. Lisinopril 20 mg oral daily. 9. Oxybutynin ER 10 mg oral daily. 10. Docusate sodium 100 mg oral daily. 11. Tamsulosin HCL 0.4 mg oral daily. 12. Carvedilol 3.125 mg oral twice daily. 13. Betamethasone 0.1% cream one application topical twice daily. HISTORY OF PRESENT ILLNESS/HOSPITAL COURSE: Mr. Woodall is a middle-aged gentleman with past medical history of coronary artery disease status post CABG as well as hypertension who presents with a 3 week history of daily headaches. They usually start in the occipital area and radiate forward. They are associated with some dizziness. He has not had nausea or vomiting, but reported debilitation by the intensity of the pain. The patient states that these have been occurring both day and night. He does not have any provoking illness or injury. He did come into the hospital for evaluation, partly because of the headaches and partly due to the fact that his systolic blood pressure was in the 90s and he was told to come to the emergency department if systolic blood pressure dropped below 90. Of note, on the way to the hospital, he did have an episode of when he was getting onto the bus and ended up falling and potentially knocking himself out. He had no postictal state and recalled the events in full detail. Upon arrival to the emergency department the stroke team was called. The patient had a CT of the brain which was negative. Additionally, he had a CT of the head and neck, which also did not show any significant stenosis of the carotids or cerebral vessels. The next morning, he had an MRI of the brain for further evaluation which was also normal. The patient remained stable throughout the course of his hospital stay. He did have some presenting weakness in the left upper and lower extremities as well as some potential left facial droop. These symptoms did persist throughout his hospital stay; however, the exam each time was rather inconsistent. It was uncertain whether or not the exam was altered by poor patient effort. The patient was able to ambulate with minimal assistance. NIH scale remained between 2-3 without any concerns for CVA. For completion sake, Neurology was consulted. Dr. Gaxiola did evaluate the patient and based on the negative studies and the nature of his chronic intense headaches, it is presumed that these symptoms may be a manifestation of cluster migraines The patient was started on Topamax 50 mg twice a day as well as Maxalt 10 mg twice a day as needed for headaches per Neurology. Dr. Gaxiola does have a suspicion that some of the symptom manifestations could be psychogenic. He is to continue following with Neurology as needed for migraines and to further evaluate the patient's current symptoms. Based on all the negative studies, a CVA was ruled out. The patient will be treated for migraine headaches per Neurology and is to follow up with his primary care physician, Dr. Anastacio Laboy, upon discharge from the hospital. The patient's blood pressure was elevated upon admission; however, blood pressure medications were held to allow for permissive hypertension. Upon restarting his blood pressure medications, his blood pressures did remain slightly elevated. Likely once his blood pressure medications have time to take effect again, the blood pressure will normalize. The patient can follow up with primary care physician to ensure the blood pressure remains controlled. Of note, the patient was noted to have a TSH of 10.4668. Based on clinic records this is something that has been evaluated previously. The patient did have a normal T3, and free T4 in clinic. He was supposed to be started on levothyroxine 50 mcg per his primary care physician, but did not start taking that medication. He was started on that medication while hospitalized per PCP recommendations. Additionally, a fasting lipid panel was performed to evaluate for hyperlipidemia. Total cholesterol was noted to be 119 with an LDL of 61 and HDL 44. He is already taking his statin medication for coronary artery disease. His hemoglobin A1c was also checked, which was noted to be 5.3. DISPOSITION: Stable. DISCHARGE INSTRUCTIONS: 1. Location: Home. 2. Diet: Heart healthy diet. 3. Activity: No restrictions. 4. Followup: The patient is to follow up with Dr. Gaxiola, the neurologist in 14 days. Additionally, he is to follow up with his primary care physician, Dr. Anastacio Laboy within 7 days of discharge from the hospital to ensure resolution and improvement in symptoms. This was discussed with patient at length. He was in understanding and agreeable with the plan. BHASKAR
== END 2017-11-13 16:50 | disposition home or self-care (01) ==
LOC: ERS 13:27 → 2SE 15:34
PROVIDERS: ADMIT Family Medicine; ATTEND Family Medicine
DX: R51 Headache (principal); R42 Dizziness and giddiness; I10 Essential (primary) hypertension; E03.9 Hypothyroidism, unspecified; N40.0 Benign prostatic hyperplasia without lower urinary tract symptoms; F31.9 Bipolar disorder, unspecified; I25.10 Atherosclerotic heart disease of native coronary artery without angina pectoris; E78.5 Hyperlipidemia, unspecified; Z88.1 Allergy status to other antibiotic agents; Z88.8 Allergy status to other drugs, medicaments and biological substances; Z79.82 Long term (current) use of aspirin; Z79.899 Other long term (current) drug therapy; Z86.69 Personal history of other diseases of the nervous system and sense organs
CPT/HCPCS: 36415; 36416; 70450; 70496; 70498; 70551; 71045; 80053; 80061; 82553; 83036; 83735; 84443; 84484; 85025; 85610; 93005; 93306; 96372; 96374; G0378; G8978-GP-CJ; G8979-GP-CI; G8987-GO-CH; G8988-GO-CH; G8989-GO-CH; G8996-GN-CH; G8997-GN-CH; J1650; J1885

== ENCOUNTER 2018-08-17 16:38 | Observation (INO) | payer OTHER ==
--- NOTE | 2018-08-17 17:04 | RAD ---
UPRIGHT PORTABLE CHEST ONE VIEW 08/17/18 HISTORY: 52-year-old male with history of chest tightness with shortness of breath, left sided chest pain. COMPARISON: 11/12/17. FINDINGS: Heart size is within normal limits of size. Postop midline sternotomy. No confluent pneumonia, overt edema or pleural effusion. IMPRESSION: No acute intrathoracic disease. Postop midline sternotomy. POS: ROSALVA
[2018-08-17 17:17] LABS: #Basophils 0.1 thou/uL (0.0-0.2); #Eosinphils 0.2 thou/uL (0.0-0.7); #Lymphocytes 2.5 thou/uL (1.20-3.40); #Monocytes 0.6 thou/uL (0.11-0.59); #Neutrophils 4.8 thou/uL (1.40-6.50); %Basophils 1.1 % (0.0-1.0); %Eosinophils 2.7 % (0.0-10.0); %Lymphocytes 30.3 % (21.0-51.0); %Neutrophils 58.9 % (42.0-75.0); Hemoglobin 12.2 g/dL (14.0-18.0); Mean Corpuscular HGB CONC 32.5 g/dL (32.0-36.0); Mean Corpuscular Hemoglobin 28.9 pg (27.0-31.0); Mean Corpuscular Volume 88.7 fL (78.0-98.0); Mean Platelet Volume 6.5 fL (7.4-10.4); Platelet Count 286 thou/uL (130-400); RBC Distribution Width 12.8 % (11.5-14.5); Red Blood Cell (RBC) Count 4.23 mill/uL (4.70-6.10); White Blood Cell (WBC) Count 8.1 thou/uL (4.8-10.8)
[2018-08-17 17:41] LABS: ALT (SGPT) 22 U/L (8-55); AST (SGOT) 18 U/L (5-34); Albumin 3.8 g/dL (3.5-5.0); Alkaline Phosphatase 67 U/L (40-150); Anion Gap 16 mmol/L (10-20); BUN (Urea Nitrogen) 18 mg/dL (8.4-25.7); Bilirubin, Total 0.3 mg/dL (0.2-1.2); CK (CPK) 226 U/L (30-200); Calc. Creatinine Clearance 0 mL/min (70-130); Calcium 8.9 mg/dL (7.8-10.44); Carbon Dioxide 22 mmol/L (22-29); Chloride 107 mmol/L (98-107); Estimated GFR-MDRD Greater than 90; Globulin 2.6 g/dL (2.4-3.5); Glucose 132 mg/dL (70-105); Lipase 40 U/L (8-78); Potassium 3.8 mmol/L (3.5-5.1); Protein, Total 6.4 g/dL (6.0-8.3); Sodium 141 mmol/L (136-145)
--- NOTE | 2018-08-17 18:42 | PDOC.FPRHP ---
- History of Present Illness Chief Complaint: CP History of Present Illness: 52yo M with significant PMH of CAD with CABG 2015 and 3 stents presenting with complaint of substernal CP with radiation to L shoulder. 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 Burning quality pain of moderate severity. Related dizziness and diaphoresis. No significant transforming factors, not alleviated by rest. ED Course: ASA - Allergies/Adverse Reactions Allergies Allergy/AdvReac Type Severity Reaction Status Date / Time ciprofloxacin [From Cipro] Allergy Verified 08/17/18 20:11 promethazine [From Phenergan] Allergy Verified 08/17/18 20:11 - Home Medications Medication Instructions Recorded Confirmed Type Aspirin [Aspirin Chewable Tablet] 81 mg PO DAILY 07/02/16 08/17/18 History Atorvastatin Calcium 80 mg PO HS 07/02/16 08/17/18 History Lisinopril 20 mg PO DAILY 07/02/16 08/17/18 History Venlafaxine HCl 300 mg PO QAM-WM 07/02/16 08/17/18 History Betamethasone 0.1% Cream [Valisone 1 applic TOP BID 11/12/17 08/17/18 History 0.1% Cream] Carvedilol [Coreg] 3.125 mg PO BID 11/12/17 08/17/18 History Oxybutynin ER [Ditropan XL] 10 mg PO DAILY 11/12/17 08/17/18 History Tamsulosin HCl [Flomax] 0.4 mg PO DAILY 11/12/17 08/17/18 History Levothyroxine Sodium [Synthroid] 50 mcg PO 0600 #30 tab 11/13/17 08/17/18 Rx Rizatriptan Benzoate [Maxalt] 10 mg PO BID #60 tablet 11/13/17 08/17/18 Rx Topiramate [Topamax] 50 mg PO BID #60 tab 11/13/17 08/17/18 Rx - History PMHx: CAD s/p CABG 2016 w/ 3 stents, seizure d/o, HTN, hypothyroid, bph PSHx: CABG, selin, hernia FHx: CAD: mother @ 69yo, brother had first RI at 30yo Social: denies tobacco/etoh/drugs - Review of Systems General: denies: fever/chills, fatigue Eyes: denies: eye pain, vision changes ENT: denies: nasal congestion, rhinorrhea Respiratory: denies: cough, shortness of breath Cardiovascular: reports: chest pain. denies: palpitation, edema, orthopnea Gastrointestinal: denies: nausea, vomiting Genitourinary: denies: dysuria, polyuria Skin: denies: rashes, lesions Musculoskeletal: denies: pain, tenderness Neurological: denies: syncope, seizure Psychological: denies: anxiety, depression - Vital signs BP: [153/95] HR: [68] RR: [21] Tmax: [98.1] Pox: [96]% on [ra] Wt: [99kg] - Physical Exam Constitutional: NAD, awake, alert and oriented, well developed HEENT: normocephalic and atraumatic, EOMI, grossly normal vision, grossly normal hearing Neck: supple, trachea midline Chest: no-tender to palpation Heart: RRR, normal S1/S2 Lungs: CTAB, no respiratory distress Abdomen: soft, non-tender Musculoskeletal: normal structure, normal tone Neurological: no focal deficit, normal sensation Skin: no rash/lesions, good turgor Heme/Lymphatic: no purpura, no petechia Psychiatric: normal mood and affect, good judgment and insight FMR H&P: Results - Labs Result Diagrams: 08/17/18 16:59 08/18/18 04:57 Lab results: WBC 8.1 thou/uL (4.8-10.8) 08/17/18 16:59 Hgb 12.2 g/dL (14.0-18.0) L 08/17/18 16:59 Hct 37.5 % (42.0-52.0) L 08/17/18 16:59 MCV 88.7 fL (78.0-98.0) 08/17/18 16:59 Plt Count 286 thou/uL (130-400) 08/17/18 16:59 Neutrophils % 58.9 % (42.0-75.0) 08/17/18 16:59 Sodium 141 mmol/L (136-145) 08/17/18 16:59 Potassium 3.8 mmol/L (3.5-5.1) 08/17/18 16:59 Chloride 107 mmol/L (98-107) 08/17/18 16:59 Carbon Dioxide 22 mmol/L (22-29) 08/17/18 16:59 BUN 18 mg/dL (8.4-25.7) 08/17/18 16:59 Creatinine 0.82 mg/dL (0.7-1.3) 08/17/18 16:59 Glucose 132 mg/dL (70-105) H 08/17/18 16:59 Calcium 8.9 mg/dL (7.8-10.44) 08/17/18 16:59 Total Bilirubin 0.3 mg/dL (0.2-1.2) 08/17/18 16:59 AST 18 U/L (5-34) 08/17/18 16:59 ALT 22 U/L (8-55) 08/17/18 16:59 Alkaline Phosphatase 67 U/L (40-150) 08/17/18 16:59 Creatine Kinase 226 U/L (30-200) H 08/17/18 16:59 Serum Total Protein 6.4 g/dL (6.0-8.3) 08/17/18 16:59 Albumin 3.8 g/dL (3.5-5.0) 08/17/18 16:59 Lipase 40 U/L (8-78) 08/17/18 16:59 FMR H&P: A/P - Problem List (1) Chest pain Current Visit: No Status: Acute Code(s): R07.9 - CHEST PAIN, UNSPECIFIED (2) BPH (benign prostatic hyperplasia) Current Visit: No Status: Chronic Code(s): N40.0 - BENIGN PROSTATIC HYPERPLASIA WITHOUT LOWER URINRY TRACT SYMP (3) CAD (coronary artery disease) Current Visit: No Status: Chronic Code(s): I25.10 - ATHSCL HEART DISEASE OF [place] CORONARY ARTERY W/O ANG PCTRS Qualifiers: Coronary Disease-Associated Artery/Lesion type: bypass graft [place] vs. transplanted heart: tribal heart Associated angina: without angina Qualified Code(s): I25.810 - Atherosclerosis of coronary artery bypass graft(s) without angina pectoris (4) HLD (hyperlipidemia) Current Visit: No Status: Chronic Code(s): E78.5 - HYPERLIPIDEMIA, UNSPECIFIED (5) HTN (hypertension) Current Visit: No Status: Chronic Code(s): I10 - ESSENTIAL (PRIMARY) HYPERTENSION (6) Hypothyroidism Current Visit: No Status: Chronic Code(s): E03.9 - HYPOTHYROIDISM, UNSPECIFIED - Plan 52yo M with significant pmh of CAD presenting with typical CP Typical CP likely 2/2 Stable Angina -Pt has multiple risk factors including previous CAD s/p CABG. He presents with typical symptoms and a HEART score of 6. Pt's last cardiolite stress test was in May of 2017 and just showed scarring from previously known CAD. P- trend cardiac enzymes - stress test in AM - will consider cards consult considering significant cardiac hx - Restart home medications - hold home coreg - NPO at midnight. Seizure disorder A- Pt reports prior workup by neuro and no specific diagnosis other than seizure d/o. currently on Topimax. Stable P- continue home meds HTN - home meds Hypothyroid - home meds HLD - home statin BPH - home flomax FULL code PPx: Lovenox for VTE disposition: Admit to telemetry observation FMR H&P: Upper Level - Pertinent history 52 yo CM with a PMH of CAD s/p 3vCABG, HTN, HLD, hypothyroidism, BPH, and bipolar disorder presenting with CP that began earlier today while at work. Pt describes CP as exertional substernal pressure with radiation to the left shoulder that did not improve with rest. He does think the pain improved with ASA and nitro. Pt denies fevers/chills, abd pain, NVD, dysuria, rash, sick contacts. - Pertinent findings Gen: obese in NAD CV: RRR Resp: unlabored, CTAB - Plan Date/Time: 08/17/181841 I, Donnell Rene MD PGY3, have evaluated this patient and agree with findings/ plan as outlined by manufacturing intern resident. Pertinent changes/additions are listed here. 1. Typical CP likely 2/2 Stable Angina -Pt has multiple risk factors including previous CAD s/p CABG. He presents with typical symptoms and a HEART score of 6. -Admit to telemetry observation and trend cardiac enzymes. -Pt's last cardiolite stress test was in May of 2017 and just showed scarring from previously known CAD. -Will plan on stress test in AM but will have low threshold for cardiology consult for worsening enzymes or unstable angina. -Restart home medications, hold any beta blockers, NPO at midnight. See manufacturing intern H&P for other chronic medical conditions. FULL code PPx: Lovenox for VTE, no GI indicated. disposition: Admit to telemetry observation for anticipated length of stay less than two midnights, pending clinical course. Addendum - Attending - Attending Attestation Date/Time: 08/17/181940 I personally evaluated the patient and discussed the management with Dr. Martel. I agree with the History, Examination, Assessment and Plan documented above with any addition or exceptions noted below. 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 Pt has CAD and had a cabg in 2016. Will trend enzymes and order stress test.
[2018-08-17] MEDS ORDERED: Calcium Carbonate 500 MG ChewTAB PO PRN (20:00)
[2018-08-17] MEDS ORDERED: Acetaminophen 325 MG TAB PO PRN (20:00)
[2018-08-17] MEDS ORDERED: SUMAtriptan Succinate 50 MG TAB PO PRN (20:08)
[2018-08-17 20:54] LABS: Troponin I Less than 0.010 ng/mL (< 0.028)
[2018-08-17] MEDS ORDERED: RIZATRIPTAN BENZOATE 10 MG PO SCH (21:00)
[2018-08-17] MEDS ORDERED: Atorvastatin Calcium 40 MG TAB PO SCH (21:00)
[2018-08-17] MEDS ORDERED: Lisinopril 20 MG TAB PO SCH (21:00)
[2018-08-17] MEDS: Topiramate 25 MG TAB PO SCH (21:58)
[2018-08-17] MEDS: Betamethasone 0.1% Cream 45 GM TUBE TOP SCH (22:06)
[2018-08-17 22:26] VITALS: BMI 38.7
[2018-08-17 23:32] LABS: Troponin I Less than 0.010 ng/mL (< 0.028)
[2018-08-18 05:30] LABS: Anion Gap 10 mmol/L (10-20); BUN (Urea Nitrogen) 17 mg/dL (8.4-25.7); Calc. Creatinine Clearance 174 mL/min (70-130); Calcium 9.1 mg/dL (7.8-10.44); Carbon Dioxide 26 mmol/L (22-29); Cardiac Risk 4.5 (Less than 4.5); Chloride 105 mmol/L (98-107); Cholesterol 215 mg/dl (< 200 Desired); Estimated GFR-MDRD Greater than 90; Glucose 105 mg/dL (70-105); HDL Cholesterol 48 mg/dL (>60 Neg Risk); LDL Cholesterol, Calculated 144 mg/dL; Potassium 3.8 mmol/L (3.5-5.1); Sodium 137 mmol/L (136-145); Triglycerides 116 mg/dL (Less than 150)
[2018-08-18] MEDS ORDERED: Levothyroxine Sodium 50 MCG TAB PO SCH (06:00)
--- NOTE | 2018-08-18 06:37 | PDOC.FM ---
- Subjective Subjective: Mr. Woodall is resting comfortably in bed, he denies any more chest pain or SOB - Objective Vital Signs & Weight: Vital Signs (12 hours) Temp Pulse Resp BP BP Pulse Ox 08/18/18 04:21 98 F 60 20 160/85 H 93 L 08/17/18 23:44 98.1 F 81 15 160/95 H 92 L 08/17/18 21:58 172/95 H 08/17/18 19:46 97.8 F 70 20 158/91 H 93 L Weight Weight 105.596 kg Result Diagrams: 08/17/18 16:59 08/18/18 04:57 Phys Exam - Physical Examination Constitutional: NAD HEENT: moist MMs Neck: no JVD Respiratory: clear to auscultation bilateral Cardiovascular: RRR murmur present Gastrointestinal: soft, non-tender Musculoskeletal: no edema Neurological: moves all 4 limbs Psychiatric: normal affect Skin: no rash Dx/Plan (1) Chest pain Code(s): R07.9 - CHEST PAIN, UNSPECIFIED Status: Acute (2) CAD (coronary artery disease) Code(s): I25.10 - ATHSCL HEART DISEASE OF [place] CORONARY ARTERY W/O ANG PCTRS Status: Chronic Qualifiers: Coronary Disease-Associated Artery/Lesion type: bypass graft [place] vs. transplanted heart: [place] heart Associated angina: without angina Qualified Code(s): I25.810 - Atherosclerosis of coronary artery bypass graft(s) without angina pectoris (3) HLD (hyperlipidemia) Code(s): E78.5 - HYPERLIPIDEMIA, UNSPECIFIED Status: Chronic (4) HTN (hypertension) Code(s): I10 - ESSENTIAL (PRIMARY) HYPERTENSION Status: Chronic - Plan Plan: Typical CP likely 2/2 Stable Angina -Pt has multiple risk factors including previous CAD s/p CABG. He presents with typical symptoms and a HEART score of 6. Pt's last cardiolite stress test was in May of 2017 and just showed scarring from previously known CAD. - troponin neg, EKG not concerning for st elevation - stress test in AM, consult cards with positive results - Restart home medications - hold home coreg, resume after stress . Seizure disorder - Pt reports prior workup by neuro and no specific diagnosis other than seizure d/o. currently on Topimax. Stable - continue home meds HTN - home meds, hydralazine prn Hypothyroid - home meds HLD - home statin BPH - home flomax FULL code PPx: Lovenox disposition: stress test today Addendum - Attending - Attending Attestation Date/Time: 08/18/18 [id number] I personally evaluated the patient and discussed the management with Dr. Payne. I agree with the History, Examination, Assessment and Plan documented above with any addition or exceptions noted below. The patient's cardiac enzymes were negative overnight. He will have a stress test today and if negative, will d/c home.
[2018-08-18] MEDS: Topiramate 25 MG TAB PO SCH (08:35)
[2018-08-18] MEDS: Betamethasone 0.1% Cream 45 GM TUBE TOP SCH (08:36)
[2018-08-18] MEDS ORDERED: Lisinopril 20 MG TAB PO SCH (09:00)
[2018-08-18] MEDS ORDERED: Oxybutynin ER 5 MG TAB PO SCH (09:00)
[2018-08-18] MEDS ORDERED: Enoxaparin Sodium 40 MG/0.4 ML SYRINGE SC SCH (09:00)
[2018-08-18] MEDS ORDERED: Tamsulosin HCl 0.4 MG CAP PO SCH (09:00)
--- NOTE | 2018-08-18 13:54 | NM ---
MYOCARDIAL PERFUSION SCAN: The patient was given 10 mCi of Technetium sestamibi for resting imaging and 33 mCi for stress imagin g. The patient was stressed according to exercise with Wil protocol. The patient attained 85% of maximal age-predicted heart rate. INDICATION: Chest pain. TECHNIQUE: The left ventricle was imaged with SPECT imaging with CT attenuation images. FINDINGS: There is an anterior apical fixed defect consistent with old scar. No evidence of reversible ischemia. Wall motion shows apical akinesis and global hypokinesis. Ejection fraction is recorded at 44%. IMPRESSION: Anterior apical scar and apical akinesis with global hypokinesis. No evidence of reversible ischemia . POS: REUBEN
[2018-08-18 16:24] VITALS: BP 140/93; TEMP 97.7
--- NOTE | 2018-08-18 23:28 | DIS ---
DATE OF ADMISSION: 08/17/2018 DATE OF DISCHARGE: 08/18/2018 RESIDENT: Rubén Payne DO ADMITTING ATTENDING: Giuliana Urena MD DISCHARGE ATTENDING: Giuliana Urena MD CONSULTS: None. PROCEDURES: None. IMAGING: Nuclear medicine stress test was significant for no significant reversible ischemia and apical scarring similar to stress test completed one year ago. PRIMARY DIAGNOSIS: Typical chest pain with history of coronary artery disease. SECONDARY DIAGNOSES: 1. Seizure disorder. 2. Hypertension. 3. Hypothyroidism. 4. Hyperlipidemia. 5. Benign prostatic hypertrophy. DISCHARGE MEDICATIONS: 1. Venlafaxine 300 mg p.o. q.a.m. 2. Atorvastatin 80 mg p.o. at bedtime. 3. Aspirin 81 mg p.o. daily. 4. Lisinopril 20 mg p.o. daily. 5. Oxybutynin ER 10 mg p.o. daily. 6. Tamsulosin 0.4 mg p.o. daily. 7. Coreg 3.125 mg p.o. b.i.d. 8. Betamethasone 1 application topical b.i.d. 9. Levothyroxine 50 mcg p.o. at 0600. 10. Maxalt 10 mg p.o. b.i.d. 11. Topamax 50 mg p.o. b.i.d. DISCONTINUED MEDICATIONS: None. HISTORY OF PRESENT ILLNESS/HOSPITAL COURSE: Mr. Woodall is a 52-year-old male with a past medical history significant for coronary artery disease with CABG done in 2016 and 3 stents. His presenting complaint was substernal chest pain with radiation to the left shoulder. In the ER, he was given aspirin. His troponins were negative. EKG was within normal limits. It was determined that his vital signs were stable and is unlikely for an acute UT. Nuclear medicine stress should be performed in the morning. The patient remained stable throughout hospital course. Nuclear medicine stress was performed with comparison to nuclear medicine stress completed 1 year ago. There was no change. No signs of reversible ischemia. Mild amount of akinesis in the apex similar to past reads. The patient was deemed stable for discharge. DISCHARGE INSTRUCTIONS: 1. Location: Home. 2. Diet: Heart healthy, low-sodium. 3. Activity: As tolerated. 4. Followup: Follow up with PCP, Dr. Cronin in 7 days and clinical secretary in 3 to 4 weeks. Dieter ID: [id number]
--- NOTE | 2018-08-19 13:09 | STRESS ---
Acquisition Time: 2018-08-18 10:19:41 Total Exercise Time: 00:07:31 Test Indications: CHEST PAIN Medications: Protocol: AYO Max HR: 144 BPM 85% of Pred: 168 BPM Max BP: 154/094 mmHG Max Work Load: 10.1 METS RESTING ECG: NORMAL SINUS RHYTHM WITH LEFT AXIS DEVIATION, POOR R WAVE PROGRESSION, AND SEPTAL INFARCTION SYMPTOMS: ULLOA NORMAL BP RESPONSE ECTOPY: RARE PVC'S ECG STRESS: NO SIGNIFICANT CHANGES INTERPRETATION: AWAIT NUCLEAR IMAGES FOR DEFINTIVE DIAGNOSIS COMMENTS: EXERCISE 7:30 AND PEAK HEART RATE = 146 Confirmed by JORDAN MORAN ([id number]), online content editor EMILY ISBELL ([id number]) on 08/19/2018 1:09:03 PM Referred By: MD THURSTON Confirmed By:JORDAN MORAN
== END 2018-08-18 18:35 | disposition home or self-care (01) ==
LOC: ERS 16:38 → 2SW 18:00
PROVIDERS: ADMIT Family Medicine; ATTEND Family Medicine
DX: R07.89 Other chest pain (principal); I25.10 Atherosclerotic heart disease of native coronary artery without angina pectoris; G40.909 Epilepsy, unspecified, not intractable, without status epilepticus; I10 Essential (primary) hypertension; E03.9 Hypothyroidism, unspecified; E78.5 Hyperlipidemia, unspecified; N40.0 Benign prostatic hyperplasia without lower urinary tract symptoms; F31.9 Bipolar disorder, unspecified; E66.9 Obesity, unspecified; Z68.38 Body mass index [BMI] 38.0-38.9, adult; Z79.82 Long term (current) use of aspirin; Z79.899 Other long term (current) drug therapy; Z88.1 Allergy status to other antibiotic agents; Z88.8 Allergy status to other drugs, medicaments and biological substances; Z95.1 Presence of aortocoronary bypass graft; Z95.5 Presence of coronary angioplasty implant and graft
CPT/HCPCS: 36415; 36416; 71045; 78452; 80048; 80053; 80061; 82550; 83690; 84443; 84484; 85025; 85379; 90471; 90686; 93005; 93017; 96372; A9500; G0008; G0378; J1650

== ENCOUNTER 2019-05-20 12:04 | Emergency (ER) | payer OTHER ==
[2019-05-20 12:38] LABS: #Basophils 0.1 thou/uL (0.0-0.2); #Eosinphils 0.2 thou/uL (0.0-0.7); #Lymphocytes 1.9 thou/uL (1.20-3.40); #Monocytes 0.4 thou/uL (0.11-0.59); #Neutrophils 4.5 thou/uL (1.40-6.50); %Basophils 1.4 % (0.0-1.0); %Eosinophils 2.5 % (0.0-10.0); %Lymphocytes 26.5 % (21.0-51.0); %Monocytes 5.3 % (0.0-10.0); %Neutrophils 64.4 % (42.0-75.0); Hemoglobin 12.8 g/dL (14.0-18.0); Mean Corpuscular HGB CONC 32.6 g/dL (32.0-36.0); Mean Corpuscular Hemoglobin 29.8 pg (27.0-31.0); Mean Corpuscular Volume 91.4 fL (78.0-98.0); Mean Platelet Volume 6.3 fL (7.4-10.4); Platelet Count 253 thou/uL (130-400); Red Blood Cell (RBC) Count 4.29 mill/uL (4.70-6.10)
--- NOTE | 2019-05-20 12:42 | RAD ---
Portable frontal chest radiograph: 05/20/2019 COMPARISON: 08/17/2018 HISTORY: Seizure FINDINGS: Heart and mediastinal contours demonstrate stable prominence of the cardiac silhouette. Sta ble mild tortuosity of the descending thoracic aorta. Stable midline sternotomy wires. No pneumothorax, pleural fluid, focal consolidation, or alveolar edema. IMPRESSION: No acute findings.
--- NOTE | 2019-05-20 12:48 | CT ---
CT HEAD WITHOUT IV CONTRAST COMPARISON: 11/12/2017 HISTORY: Seizures today. TECHNIQUE: Axial CT imaging at 5 mm intervals from vertex through skull base without contrast FINDINGS: There is no evidence of an acute infarction, hemorrhage, mass effect, or midline shift. The ventricul ar system is normal in size, shape, and position. There is opacification of a posterior right ethmoidal air cell stable from prior study. The remainder the visualized paranasal sinuses and mastoid air cells are clear. Osseous structures appear intact. IMPRESSION: 1. No acute intracranial abnormality demonstrated.
--- NOTE | 2019-05-20 12:53 | CT ---
EXAM: CT cervical spine PROVIDED CLINICAL HISTORY: Injury after seizure today. TECHNIQUE: Contiguous axial CT images are obtained through the cervical spine from the skull base to the T2 leve l. Sagittal and coronal reformatted images are provided. COMPARISON: None FINDINGS: There is straightening of the normal cervical lordotic curvature. There are degenerative changes pres ent at the C6-7 level with narrowing of the intervertebral disc spaces and mild endplate degenerative changes. Disc osteophyte complex is present which does narrow the ventral subarachnoid s pace. Facet degenerative changes are present at this level. There is mild right and severe left-sided neural foraminal narrowing primarily related to bony encroachment. No fracture or subluxation is visualized. No prevertebral soft tissue swelling apparent. Limited visualized lung apices are clear. The thyroid gland is incompletely imaged on this exam but where visualized demonstrates a grossly nor mal nonenhanced CT appearance. Vascular calcifications are seen in the carotid arteries. IMPRESSION: 1. No evidence for fracture or traumatic subluxation. 2. Prominent degenerative changes at the C6-7 level with severe left-sided neural foraminal narrowing ..
[2019-05-20 13:02] LABS: ALT (SGPT) 16 U/L (8-55); AST (SGOT) 17 U/L (5-34); Albumin 4.1 g/dL (3.5-5.0); Alkaline Phosphatase 61 U/L (40-110); Anion Gap 12 mmol/L (10-20); BUN (Urea Nitrogen) 10 mg/dL (8.4-25.7); Bilirubin, Total 0.3 mg/dL (0.2-1.2); CK (CPK) 215 U/L (30-200); Calc. Creatinine Clearance 0 mL/min (70-130); Calcium 8.7 mg/dL (7.8-10.44); Carbon Dioxide 29 mmol/L (22-29); Chloride 103 mmol/L (98-107); Estimated GFR-MDRD Greater than 90; Globulin 2.3 g/dL (2.4-3.5); Glucose 139 mg/dL (70-105); Potassium 3.6 mmol/L (3.5-5.1); Protein, Total 6.4 g/dL (6.0-8.3); Sodium 140 mmol/L (136-145)
[2019-05-20 16:34] LABS: Troponin I Less than 0.010 ng/mL (< 0.028)
== END 2019-05-20 17:05 | disposition home or self-care (01) ==
LOC: ERS 12:04
DX: G40.909 Epilepsy, unspecified, not intractable, without status epilepticus (principal); R07.89 Other chest pain; I25.10 Atherosclerotic heart disease of native coronary artery without angina pectoris; I25.2 Old myocardial infarction; I10 Essential (primary) hypertension; F41.9 Anxiety disorder, unspecified; F32.9 Major depressive disorder, single episode, unspecified; Z79.899 Other long term (current) drug therapy; Z79.82 Long term (current) use of aspirin; Z95.5 Presence of coronary angioplasty implant and graft
CPT/HCPCS: 36415; 70450; 71045; 72125; 80053; 82550; 84484; 85025; 93005; 94760

== ENCOUNTER 2019-05-26 14:37 | Observation (INO) | payer OTHER, SELFPAY ==
[2019-05-26 15:11] LABS: #Eosinphils 0.3 thou/uL (0.0-0.7); #Lymphocytes 2.1 thou/uL (1.20-3.40); #Monocytes 0.4 thou/uL (0.11-0.59); #Neutrophils 3.6 thou/uL (1.40-6.50); %Basophils 0.7 % (0.0-1.0); %Lymphocytes 32.3 % (21.0-51.0); %Monocytes 6.9 % (0.0-10.0); %Neutrophils 56.1 % (42.0-75.0); Hemoglobin 12.5 g/dL (14.0-18.0); Mean Corpuscular HGB CONC 32.9 g/dL (32.0-36.0); Mean Corpuscular Hemoglobin 29.6 pg (27.0-31.0); Mean Corpuscular Volume 89.9 fL (78.0-98.0); Platelet Count 225 thou/uL (130-400); RBC Distribution Width 12.9 % (11.5-14.5); Red Blood Cell (RBC) Count 4.23 mill/uL (4.70-6.10); White Blood Cell (WBC) Count 6.3 thou/uL (4.8-10.8)
[2019-05-26 15:34] LABS: ALT (SGPT) 16 U/L (8-55); AST (SGOT) 17 U/L (5-34); Alkaline Phosphatase 64 U/L (40-110); Anion Gap 11 mmol/L (10-20); BUN (Urea Nitrogen) 13 mg/dL (8.4-25.7); Bilirubin, Total 0.4 mg/dL (0.2-1.2); CK (CPK) 211 U/L (30-200); Calc. Creatinine Clearance 0 mL/min (70-130); Calcium 8.7 mg/dL (7.8-10.44); Carbon Dioxide 30 mmol/L (22-29); Chloride 102 mmol/L (98-107); Estimated GFR-MDRD Greater than 90; Globulin 2.4 g/dL (2.4-3.5); Glucose 112 mg/dL (70-105); Lipase 18 U/L (8-78); Potassium 4.2 mmol/L (3.5-5.1); Protein, Total 6.4 g/dL (6.0-8.3); Sodium 139 mmol/L (136-145)
[2019-05-26] MEDS ORDERED: Nitroglycerin 2% Ointment 1 INCH/1 GM Packet ONE (15:43)
[2019-05-26] MEDS ORDERED: Aspirin Chewable 81 MG TAB ONE (15:43)
[2019-05-26] MEDS ORDERED: Nitroglycerin 0.4 MG TAB 1 EACH ONE (15:48)
--- NOTE | 2019-05-26 15:59 | RAD ---
FRONTAL VIEW CHEST: Date: 05/26/19 COMPARISON: 05/20/19. CLINICAL HISTORY: Chest pain. FINDINGS: No lobar consolidation. Cardiac silhouette remains enlarged, without evidence of prior sternotomy. No significant interval change. IMPRESSION: Stable findings of CHF. POS: C
--- NOTE | 2019-05-26 18:04 | PDOC.FPRHP ---
- History of Present Illness Chief Complaint: chest pain History of Present Illness: 53-year-old male with a past medical history of CAD requiring X4 stents and then CABG in 2016 for three vessels. Came to the emergency department because of chest pain centrally located, radiating to his left neck causing numbness and left arm pain. He also felt dizzy with this CP. The pain started after lunch. Patient denies any nausea, vomiting, diaphoresis, or shortness of breath. Patient had a prior stress test in August 2018 which showed a fixed apical defect. Pt had elevated BP throughout the day, as high as 200/150. He was first seen at [facility], then [facility]. [facility] sent him home with the plan to increase his BP medications. Pt originally states he took all medication as prescribed. But upon further evaluation it shows he has not filled medication since january. He had empty bottles at home, per . The chest pain was not present at the time e was seen at [facility] or [facility]. PT was recently seen by Dr. Webber, fitter's assistant, X2 months ago. Wit recent echo. + muscle cramping, coughing with phlegm production. ED Course: PT given nitro and X3 ASA. Alleviated CP. Trops neg CK 211 Lipase 18 h/h 12.5/38.0 CXR cardiomegaly, stable CHF findings - Allergies/Adverse Reactions Allergies Allergy/AdvReac Type Severity Reaction Status Date / Time ciprofloxacin [From Cipro] Allergy Hives Verified 05/26/19 19:53 promethazine [From Phenergan] Allergy vomiting Verified 05/26/19 19:53 - Home Medications Medication Instructions Recorded Confirmed Type Aspirin Chewable [Aspirin Chewable 81 mg PO DAILY 07/02/16 05/26/19 History Tablet] Atorvastatin Calcium 80 mg PO HS 07/02/16 05/26/19 History Lisinopril 20 mg PO HS 07/02/16 05/26/19 History Carvedilol [Coreg] 6.25 mg PO BID 11/12/17 05/26/19 History Levothyroxine Sodium [Synthroid] 50 mcg PO 0600 #30 tab 11/13/17 05/26/19 Rx Hydrochlorothiazide 12.5 mg PO DAILY 05/26/19 05/26/19 History OXcarbazepine [Trileptal] 150 mg PO BID 05/26/19 05/26/19 History Potassium 99 mg PO DAILY 05/26/19 05/26/19 History Venlafaxine HCl [Venlafaxine HCl 225 mg PO DAILY 05/26/19 05/26/19 History ER] traZODone HCl [Trazodone HCl] 50 mg PO HS 05/26/19 05/26/19 History - History PMHx: CAD, Bipolar D/O, Monroe palsy L-facial droop, PTSD, GA in 2016 PSHx: CABG 2016 X3 vessels, X4 stent placements prior to CABG, Cholecystectomy, Hernia repar FHx: mother: at age 69 from [place], father: at age 71 from [place], Brother: [place] at age 31 and 37 Social: quit smoking 20 yrs ago. Smoked 2.5 ppd for 30 years. Recovering alcoholic. Last drink in 2016. Prior illicit drug abuse, quit in . Cocaine, pills, LSD, acid. - Review of Systems General: denies: fever/chills ENT: denies: nasal congestion Respiratory: reports: cough. denies: shortness of breath, exercise intolerance Cardiovascular: reports: chest pain. denies: palpitation, edema, paroxysmal nocturnal dyspnea Gastrointestinal: denies: nausea, vomiting, abdominal pain Skin: denies: rashes Musculoskeletal: reports: pain (Left arm and neck numbness.) Neurological: reports: numbness (left neck) - Vital signs BP: 155/82 HR: 64 RR: 18 Tmax:98 Pox: 96% on RA Wt: 111 kg - Physical Exam Constitutional: NAD, awake, alert and oriented, well developed HEENT: normocephalic and atraumatic, PERRLA, EOMI, conjunctiva clear, no scleral icterus, grossly normal vision, grossly normal hearing, MMM Neck: supple, FROM, trachea midline, no LAD, no JVD, no thyromegaly, no bruits Heart: RRR, normal S1/S2, no murmurs/rubs/gallops, pulses present, other (trace LE pitting edema) Lungs: CTAB, no respiratory distress, good air movement, no rales/rhonchi, no wheezing, no retractions Abdomen: soft, non-tender, bowel sounds present, no masses/distention, no hernias Musculoskeletal: normal structure, normal tone Neurological: no focal deficit, normal sensation -Neurological: Left facial droop, with forehead involvement. Chronic from bells palsy. Skin: no rash/lesions, good turgor, capillary refill <2 seconds, no jaundice Heme/Lymphatic: no unusual bruising or bleeding, no purpura Psychiatric: normal mood and affect, good judgment and insight, intact recent and remote memory FMR H&P: Results - Labs Result Diagrams: 05/26/19 15:02 05/26/19 15:02 Lab results: WBC 6.3 thou/uL (4.8-10.8) 05/26/19 15:02 Hgb 12.5 g/dL (14.0-18.0) L 05/26/19 15:02 Hct 38.0 % (42.0-52.0) L 05/26/19 15:02 MCV 89.9 fL (78.0-98.0) 05/26/19 15:02 Plt Count 225 thou/uL (130-400) 05/26/19 15:02 Neutrophils % 56.1 % (42.0-75.0) 05/26/19 15:02 Sodium 139 mmol/L (136-145) 05/26/19 15:02 Potassium 4.2 mmol/L (3.5-5.1) 05/26/19 15:02 Chloride 102 mmol/L (98-107) 05/26/19 15:02 Carbon Dioxide 30 mmol/L (22-29) H 05/26/19 15:02 BUN 13 mg/dL (8.4-25.7) 05/26/19 15:02 Creatinine 0.87 mg/dL (0.7-1.3) 05/26/19 15:02 Glucose 112 mg/dL (70-105) H 05/26/19 15:02 Calcium 8.7 mg/dL (7.8-10.44) 05/26/19 15:02 Total Bilirubin 0.4 mg/dL (0.2-1.2) 05/26/19 15:02 AST 17 U/L (5-34) 05/26/19 15:02 ALT 16 U/L (8-55) 05/26/19 15:02 Alkaline Phosphatase 64 U/L (40-110) 05/26/19 15:02 Creatine Kinase 211 U/L (30-200) H 05/26/19 15:02 Serum Total Protein 6.4 g/dL (6.0-8.3) 05/26/19 15:02 Albumin 4.0 g/dL (3.5-5.0) 05/26/19 15:02 Lipase 18 U/L (8-78) 05/26/19 15:02 - Radiology Interpretation Chest x-ray Status: report reviewed by me (cardiomegaly, stable CHF findings) FMR H&P: A/P - Problem List (1) Chest pain Current Visit: Yes Status: Acute Code(s): R07.9 - CHEST PAIN, UNSPECIFIED (2) PTSD (post-traumatic stress disorder) Current Visit: Yes Status: Acute Code(s): F43.10 - POST-TRAUMATIC STRESS DISORDER, UNSPECIFIED (3) History of heart attack Current Visit: Yes Status: Acute Code(s): I25.2 - OLD MYOCARDIAL INFARCTION (4) Family history of heart attack Current Visit: Yes Status: Acute Code(s): Z82.49 - FAMILY HX OF ISCHEM HEART DIS AND OTH DIS OF THE CIRC SYS (5) Dizziness Current Visit: Yes Status: Acute Code(s): R42 - DIZZINESS AND GIDDINESS (6) Bipolar disorder Current Visit: Yes Status: Chronic Code(s): F31.9 - BIPOLAR DISORDER, UNSPECIFIED (7) CAD (coronary artery disease) Current Visit: Yes Status: Chronic Code(s): I25.10 - ATHSCL HEART DISEASE OF [place] CORONARY ARTERY W/O ANG PCTRS Qualifiers: Coronary Disease-Associated Artery/Lesion type: bypass graft [place] vs. transplanted heart: [place] heart Associated angina: without angina Qualified Code(s): I25.810 - Atherosclerosis of coronary artery bypass graft(s) without angina pectoris (8) HLD (hyperlipidemia) Current Visit: Yes Status: Chronic Code(s): E78.5 - HYPERLIPIDEMIA, UNSPECIFIED (9) HTN (hypertension) Current Visit: Yes Status: Chronic Code(s): I10 - ESSENTIAL (PRIMARY) HYPERTENSION - Plan 53 y/o M Admitted to [facility] for further workup and treatment of Typical Chest pain. 1. Typical Chest pain - substernal CP came on at rest, L- arm and neck radiation or pain. - Nitro, asa, restarted home BP meds - Pt's BP have been elevated throughout today. He has not been taking his BP medications, last refill was in January. - hold Carvedilol, restarted lisinopril and HCTZ - Stress in AM, Cards consult pending results 2. CAD - X3 vessel CABG in 2016 - X4 stent placements prior to CABG - Parts Cleaner Dr. Webber. Last appointment X2 months ago with Echo. - Extensive FHx of GA causing in multiple 1st degree relatives. 3. Hypertensive urgency - BP's 200/150 throughout the day. - Upon initial evaluation BP was 155/82 - Restarted home BP medications 4. 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 Stress in AM. Likely <2 days, observation FMR H&P: Upper Level - Pertinent history 53 y/o M PMHx CAD s/p stents and 3v CABG, HTN, seizure d/o presents to the ED complaining of chest pain. He reports he was at [facility] this AM for his PTSD and bipolar d/o and they found him to have BP of 201/177 and the repeat was also high. He went to see his PCP and was still having elevated BP. He later started developing a left sided H/A, chest pain on the left side that radiated down his left arm that was a squeezing pain. He came to the ED and the nitro helped his chest pain, but not his H/A. The aspirin helped his headache. He is still having a mild headache, but overall feels much better. He sees Dr. eWbber as his fitter's assistant and last saw him a couple of months ago. He had a stress in 08/2018 that showed fixed anterior apical defect and EF of 44% . - Pertinent findings BP: 151/90, Pulse: 60, Resp: 18, Temp: 98.2 (Oral), Pain: 4, O2 sat: 97 on Room Air PE: Gen - alert, oriented, NAD HEENT - MMM CV - RRR, no murmurs Resp - CTAB, no wheezes Abd - soft, NTTP Ext - R leg with 1+ pitting edema that is chronic after vein harvest Labs: trop < 0.010, Hb 12.5, Cr 0.87 CXR: cardiomegaly, stable CHF findings, no acute process - Plan Date/Time: 05/26/19 1804 I, Nida Prabhakar MD, PGY-3, have evaluated this patient and agree with findings/ plan as outlined by administration intern resident. Pertinent changes/additions are listed here. 1. Stable Angina Pt reports periodic exertional chest pain since his CABG with associated palpitations. He reports having that pain today with associated elevated BP. BP better controlled on our evaluation. Initial trop negative and CXR WNL. Heart score 4. -Will obs on tele -Trend trops -Stress test in AM, if abnormal will consult fitter's assistant Dr. Webber -Will risk stratify further with FLP -Continue Aspirin and nitro 2. HTN Pt with initial elevated BP, on our evaluation was in 150s systolic -Will restart home BP medications and monitor closely -Hydralazine prn 3. CAD -Continue aspirin and statin -Plan as above 4. Bipolar d/o and PTSD -Continue trileptal, trazodone, and effexor 5. Seizures -Continue home med Dispo: Obs on tele LOS: likely less than 48 hours Addendum - Attending - Attending Attestation Date/Time: 05/26/19 5613 I personally evaluated the patient and discussed the management with Dr. Andino I agree with the History, Examination, Assessment and Plan documented above with any addition or exceptions noted below -53-year-old male history of CAD requiring for stents and then CABG in 2016 for three vessels, HTN, hypothyroidism, seizure d/o presented to the emergency department because of chest pain centrally located radiating to his left neck causing numbness in the left arm pain. Patient denies any nausea, vomiting, diaphoresis or shortness of breath. PMH/PSH/Meds/SH reviewed and agree with resident's documentation. BP 155 /82 P64 RR18 Exam repeated by me and agree with resident's documentation. Labs : H/H=12.5/38.8, Fim=473, Ld=291, K=4.2, BUN/Cr=13/0.87, Xjlg=768, trop I<0.010 , EKG- NSR, Twave inversions V3-V6. A/P: 1) Chest pain in patient with multiple risk factors- trend serial troponins. Plan for stress in AM.
[2019-05-26 18:49] LABS: Troponin I Less than 0.010 ng/mL (< 0.028)
[2019-05-26] MEDS ORDERED: Nitroglycerin 0.4 MG TAB (25 Tab Bottle) PO PRN (19:09)
[2019-05-26] MEDS ORDERED: Ondansetron ODT 4 MG TAB PO PRN (19:09)
[2019-05-26] MEDS ORDERED: Acetaminophen 325 MG TAB PO PRN (19:09)
[2019-05-26 19:16] VITALS: BMI 40.8
[2019-05-26] MEDS ORDERED: hydrALAZINE 20 MG/ML VIAL SLOW IVP SCH (20:30)
[2019-05-26] MEDS: Lisinopril 20 MG TAB PO SCH (22:30)
[2019-05-26] MEDS: traZODone HCl 50 MG TAB PO SCH (22:31)
[2019-05-26] MEDS: OXcarbazepine 150 MG TAB PO SCH (22:43)
[2019-05-27 05:33] LABS: #Basophils 0.1 thou/uL (0.0-0.2); #Eosinphils 0.3 thou/uL (0.0-0.7); #Lymphocytes 2.3 thou/uL (1.20-3.40); #Monocytes 0.6 thou/uL (0.11-0.59); #Neutrophils 3.7 thou/uL (1.40-6.50); %Basophils 0.8 % (0.0-1.0); %Eosinophils 4.4 % (0.0-10.0); %Lymphocytes 32.7 % (21.0-51.0); %Monocytes 8.6 % (0.0-10.0); %Neutrophils 53.5 % (42.0-75.0); Mean Corpuscular HGB CONC 33.1 g/dL (32.0-36.0); Mean Corpuscular Hemoglobin 29.8 pg (27.0-31.0); Mean Platelet Volume 6.3 fL (7.4-10.4); Platelet Count 226 thou/uL (130-400); RBC Distribution Width 12.9 % (11.5-14.5); Red Blood Cell (RBC) Count 4.36 mill/uL (4.70-6.10)
[2019-05-27 05:55] LABS: Anion Gap 11 mmol/L (10-20); BUN (Urea Nitrogen) 13 mg/dL (8.4-25.7); Calc. Creatinine Clearance 179 mL/min (70-130); Calcium 8.5 mg/dL (7.8-10.44); Carbon Dioxide 27 mmol/L (22-29); Cardiac Risk 3.4 (Less than 4.5); Chloride 105 mmol/L (98-107); Cholesterol 206 mg/dl (< 200 Desired); Estimated GFR-MDRD Greater than 90; Glucose 91 mg/dL (70-105); HDL Cholesterol 61 mg/dL (>60 Neg Risk); LDL Cholesterol, Calculated 129 mg/dL; Potassium 3.7 mmol/L (3.5-5.1); Sodium 139 mmol/L (136-145); Triglycerides 79 mg/dL (Less than 150)
[2019-05-27] MEDS: Levothyroxine Sodium 50 MCG TAB PO SCH (06:28)
[2019-05-27] MEDS ORDERED: Potassium [Potassium] 99 MG PO SCH (09:00)
[2019-05-27] MEDS ORDERED: Aspirin Chewable 81 MG TAB PO SCH (09:00)
[2019-05-27] MEDS ORDERED: OXcarbazepine 150 MG TAB PO SCH (09:00)
--- NOTE | 2019-05-27 09:15 | PDOC.FM ---
- Subjective Subjective: Pt doing well this morning. Reprots no CP since admission, relieved by nitro in ED. Pt reports has been without home meds since January 2019 and continuous elevated BP since that time. He reports cost is an issue with receiving meds. Denies CP, SOB, BARKLEY, n/v, diaphoresis, reflux, abd pain, arm pain, neuropathy, and palpitations. - Objective MAR Reviewed: Yes Vital Signs & Weight: Vital Signs (12 hours) Temp Pulse Resp BP BP Pulse Ox 05/27/19 09:05 64 166/94 H 05/27/19 07:25 98 F 71 16 179/81 H 97 05/27/19 06:38 95 05/27/19 04:29 97.8 F 52 L 14 120/71 95 05/27/19 01:28 168/99 H 05/26/19 22:30 168/99 H 05/26/19 21:15 172/97 H Weight Weight 111.312 kg I&O: 05/26/19 05/27/19 05/28/19 06:59 06:59 06:59 Intake Total 1250 Output Total 2850 Balance -1600 Result Diagrams: 05/27/19 04:37 05/27/19 04:37 EKG Reviewed by me: Yes (T wave inv in lead V4-V6, ) Phys Exam - Physical Examination Constitutional: NAD HEENT: moist MMs Respiratory: no wheezing, no rales, clear to auscultation bilateral Cardiovascular: RRR, no significant murmur, no rub Gastrointestinal: soft, non-tender, no distention, positive bowel sounds Musculoskeletal: pulses present chronic R leg edema 1+ Neurological: normal sensation, moves all 4 limbs Psychiatric: normal affect, A&O x 3 Skin: cap refill <2 seconds Dx/Plan (1) Chest pain Code(s): R07.9 - CHEST PAIN, UNSPECIFIED Status: Acute (2) CAD (coronary artery disease) Code(s): I25.10 - ATHSCL HEART DISEASE OF [place] CORONARY ARTERY W/O ANG PCTRS Status: Chronic Qualifiers: Coronary Disease-Associated Artery/Lesion type: bypass graft [place] vs. transplanted heart: [place] heart Associated angina: without angina Qualified Code(s): I25.810 - Atherosclerosis of coronary artery bypass graft(s) without angina pectoris (3) HLD (hyperlipidemia) Code(s): E78.5 - HYPERLIPIDEMIA, UNSPECIFIED Status: Chronic (4) Hypothyroidism Code(s): E03.9 - HYPOTHYROIDISM, UNSPECIFIED Status: Chronic (5) Bipolar disorder Code(s): F31.9 - BIPOLAR DISORDER, UNSPECIFIED Status: Chronic - Plan Plan: Typical CP with Hx of CAD s/p 3V CABG - pain relieved by nitro, substernal, squeezing pain that radiated to R arm, none since admission - trops neg x3 - stress test this am - risk stratify- A1c wnl, FLP elevated but pt noncompliant with statin, TSH not performed but likely low bc pt not taking synthroid, BP elevated - Sees Dr. Webber for cardiology- notified pt is here. HTN: - restart home meds - discussed low income, uninsured program at [facility] and will get paperwork to fill out Bradycardia overnight: - pt asymptomatic. - EKG normal rate on admission, no signs of heart block. - continue tele HLD: - start statin, recommend rpt FLP in 3-6wks Hypothyroidism: - will restart synthroid and recheck in 6wks. Bipolar DO: restrt home effexor, trileptal, and trazodone Dispo: pending stress test. Addendum - Attending - Attending Attestation Date/Time: 05/27/19 1801 I personally evaluated the patient and discussed the management with Dr. Gonzalez I agree with the History, Examination, Assessment and Plan documented above with any addition or exceptions noted below. Awaiting day 2 of stress test. Patient w/o complaint. Likely d/c tomorrow pending stress result.
[2019-05-27] MEDS: Enoxaparin Sodium 40 MG/0.4 ML SYRINGE SC SCH (10:02)
[2019-05-27] MEDS: Aspirin 325 mg Enteric Coated Tablet PO SCH (10:02)
[2019-05-27] MEDS: Hydrochlorothiazide 25 MG TAB PO SCH (12:07)
[2019-05-27] MEDS: OXcarbazepine 150 MG TAB PO SCH ×2 (12:08→21:40)
[2019-05-27] MEDS: Venlafaxine HCl XR 75 MG CAP PO SCH (12:08)
[2019-05-27] MEDS: FLU VACC QS2019-20(6MOS UP)/PF 60 MCG/0.5 ML SYRINGE IM ONE (14:43)
[2019-05-27] MEDS ORDERED: Atorvastatin Calcium 40 MG TAB PO SCH (21:00)
[2019-05-27] MEDS ORDERED: Atorvastatin Calcium 20 MG TAB PO SCH (21:00)
[2019-05-27] MEDS ORDERED: traZODone HCl 50 MG TAB PO SCH (21:00)
[2019-05-27] MEDS ORDERED: Lisinopril 20 MG TAB PO SCH (21:00)
[2019-05-27] MEDS: traZODone HCl 50 MG TAB PO SCH (21:39)
[2019-05-27] MEDS: Lisinopril 20 MG TAB PO SCH (21:40)
[2019-05-28] MEDS: Levothyroxine Sodium 50 MCG TAB PO SCH (05:51)
--- NOTE | 2019-05-28 06:00 | PDOC.FM ---
- Subjective Subjective: Feeling well this morning. Slept well. About to go down for second part of stress test. Denies chest pain, SOB. - Objective MAR Reviewed: Yes Vital Signs & Weight: Vital Signs (12 hours) Temp Pulse Resp BP Pulse Ox 05/28/19 05:48 97.9 F 68 16 113/65 95 05/27/19 23:45 97.6 F 62 18 121/90 94 L 05/27/19 19:35 98.3 F 66 20 164/91 H 97 Weight Weight 111.312 kg I&O: 05/26/19 05/27/19 05/28/19 06:59 06:59 06:59 Intake Total 1250 650 Output Total 2850 3 Balance -1600 647 Result Diagrams: 05/28/19 09:27 05/28/19 09:27 Phys Exam - Physical Examination Constitutional: NAD HEENT: moist MMs Neck: supple Respiratory: no wheezing, clear to auscultation bilateral Cardiovascular: RRR, no significant murmur Gastrointestinal: soft, non-tender, positive bowel sounds Musculoskeletal: pulses present Neurological: moves all 4 limbs Psychiatric: normal affect, A&O x 3 Skin: no rash Dx/Plan - Plan Plan: Typical CP with Hx of CAD s/p 3V CABG - pain relieved by nitro, substernal, squeezing pain that radiated to R arm, none since admission - trops neg x3 - NPO for part 2 of stress test this AM HTN - Continue home meds HLD - Continue statin, rec repeat FLP in 3-6wks Hypothyroidism - Continue Synthroid Bipolar - Continue home effexor, trileptal, and trazodone Addendum - Attending - Attending Attestation Date/Time: 05/28/19 8213 I personally evaluated the patient and discussed the management with Dr. Iglesias I agree with the History, Examination, Assessment and Plan documented above with any addition or exceptions noted below. HD#2 Doing well. No chest pain since admission. Now awaiting read on resting stress. Has not been on statin therapy. Will need repeat FLP in 3 to 6 months to make sure Zetia not needed. BNP was borderline at 98. Would continue to monitor closely outpatient for symptoms and need for ECHO. BP goal of < 120/70 hx of CAD, continue ASA Will need follow up outpatient for hypothyroidism to make sure dosing correct ABrayMD
[2019-05-28] MEDS: Aspirin 325 mg Enteric Coated Tablet PO SCH (09:01)
[2019-05-28] MEDS: Enoxaparin Sodium 40 MG/0.4 ML SYRINGE SC SCH (09:01)
[2019-05-28] MEDS: Hydrochlorothiazide 25 MG TAB PO SCH (09:01)
[2019-05-28] MEDS: Venlafaxine HCl XR 75 MG CAP PO SCH (09:02)
[2019-05-28] MEDS: FLU VACC QS2019-20(6MOS UP)/PF 60 MCG/0.5 ML SYRINGE IM ONE (09:02)
[2019-05-28] MEDS: OXcarbazepine 150 MG TAB PO SCH (09:02)
[2019-05-28 10:27] LABS: #Eosinphils 0.2 thou/uL (0.0-0.7); #Lymphocytes 1.6 thou/uL (1.20-3.40); #Monocytes 0.4 thou/uL (0.11-0.59); #Neutrophils 3.8 thou/uL (1.40-6.50); %Basophils 0.5 % (0.0-1.0); %Eosinophils 2.7 % (0.0-10.0); %Lymphocytes 26.6 % (21.0-51.0); %Monocytes 6.6 % (0.0-10.0); %Neutrophils 63.6 % (42.0-75.0); Hemoglobin 13.8 g/dL (14.0-18.0); Mean Corpuscular HGB CONC 33.2 g/dL (32.0-36.0); Mean Corpuscular Hemoglobin 29.8 pg (27.0-31.0); Mean Corpuscular Volume 89.8 fL (78.0-98.0); Mean Platelet Volume 6.5 fL (7.4-10.4); Platelet Count 252 thou/uL (130-400); Red Blood Cell (RBC) Count 4.62 mill/uL (4.70-6.10)
[2019-05-28 10:43] LABS: Anion Gap 12 mmol/L (10-20); BUN (Urea Nitrogen) 14 mg/dL (8.4-25.7); Calc. Creatinine Clearance 182 mL/min (70-130); Calcium 8.7 mg/dL (7.8-10.44); Carbon Dioxide 24 mmol/L (22-29); Chloride 103 mmol/L (98-107); Estimated GFR-MDRD Greater than 90; Glucose 101 mg/dL (70-105); Potassium 3.8 mmol/L (3.5-5.1); Sodium 135 mmol/L (136-145)
--- NOTE | 2019-05-28 11:04 | NM ---
HISTORY: A 53-year-old male with chest pain, coronary artery disease, CABG, stent placement and hypertension. TECHNIQUE: A myocardial perfusion scan was performed using the single isotope two day protocol with 33 millicuri es technetium 99m sestamibi injected intravenously for the stress and rest images. Pharmacologic stre ss with adenosine was monitored and interpreted by Dr. Kirkpatrick. FINDINGS: There is a small fixed defect in the distal anteroseptal wall. No reversible defects are seen. GATED SPECT LVEF: 51% WALL MOTION EXAM: Mild distal anteroseptal wall hypokinesis. IMPRESSION: No evidence of reversible ischemia. POS: ROSALVA
[2019-05-28 12:03] VITALS: BP 155/92; TEMP 98.2
--- NOTE | 2019-05-29 11:25 | DIS ---
DATE OF ADMISSION: 05/26/2019 DATE OF DISCHARGE: 05/28/2019 RESIDENT: Alie Iglesias, PGY-2. ADMITTING ATTENDING: Jessica Perry MD DISCHARGE ATTENDING: Karoline Holbrook MD. CONSULTS: None. PROCEDURES: 1. Chest x-ray on 05/26/2019, stable findings of CHF. 2. Nuclear stress test on 05/27/2019, no reversible ischemia. PRIMARY DIAGNOSIS: Typical chest pain. SECONDARY DIAGNOSES: 1. Coronary artery disease status post 3-vessel CABG. 2. Hypertension. 3. Hyperlipidemia. 4. Hypothyroidism. 5. Bipolar disease. DISCHARGE MEDICATIONS: 1. Aspirin 81 mg daily. 2. Atorvastatin 80 mg at bedtime. 3. Coreg 6.25 mg b.i.d. 4. Hydrochlorothiazide 12.5 mg daily. 5. Synthroid 50 mcg daily. 6. Lisinopril 20 mg at bedtime. 7. Trileptal 150 mg b.i.d. 8. Potassium 99 mg daily. 9. Trazodone 50 mg at bedtime. 10. Venlafaxine 225 mg daily. HISTORY OF PRESENT ILLNESS/HOSPITAL COURSE: Mr. Woodall is a 53-year-old male who presented today with a past medical history of ID; hypertensive urgency, resolved; history of Gmienez's palsy, PTSD, hypothyroidism, who presented to the ED with substernal chest pain radiating to his left neck causing numbness and left arm pain as well as dizziness. The patient had had a prior stress test in August 2018, which showed a fixed apical defect. The patient's air tool operator is Dr. Webber, he had last seen him two months prior with a recent echo. In the ED, the patient was given nitroglycerin and aspirin, which alleviated the chest pain. His troponins were negative x3. Other notable labs, H and H 12.5/38. Chest x-ray showed cardiomegaly, stable CHF findings. CK 211. Coreg was held prior to stress test and stress test showed no reversible ischemia. He had been out of his blood pressure medications since January. These were refilled on discharge. The patient has chronic medical conditions of bipolar, hyperlipidemia, PTSD were managed with home medications and stable throughout course of hospitalization. Hypothyroidism was treated with home medications. DISPOSITION: Stable. DISCHARGE INSTRUCTIONS: 1. Location: Home. 2. Diet: Heart healthy. 3. Activity: No restrictions. 4. Follow up with [facility] within 7 days and follows up with Dr. Cronin. Job ID: [id number]
== END 2019-05-28 13:17 | disposition home or self-care (01) ==
LOC: ERS 14:37 → 2SW 17:05
PROVIDERS: ADMIT Family Medicine; ATTEND Family Medicine
DX: I25.118 Atherosclerotic heart disease of native coronary artery with other forms of angina pectoris (principal); I16.0 Hypertensive urgency; I10 Essential (primary) hypertension; E78.5 Hyperlipidemia, unspecified; E03.9 Hypothyroidism, unspecified; F31.9 Bipolar disorder, unspecified; I25.2 Old myocardial infarction; F43.10 Post-traumatic stress disorder, unspecified; F10.21 Alcohol dependence, in remission; R42 Dizziness and giddiness; G51.0 Bell's palsy; F41.9 Anxiety disorder, unspecified; Z87.891 Personal history of nicotine dependence; Z79.82 Long term (current) use of aspirin; Z79.899 Other long term (current) drug therapy; Z88.1 Allergy status to other antibiotic agents; Z88.8 Allergy status to other drugs, medicaments and biological substances; Z95.1 Presence of aortocoronary bypass graft; Z95.5 Presence of coronary angioplasty implant and graft
CPT/HCPCS: 36415; 71045; 78452; 80048; 80053; 80061; 82550; 83690; 83880; 84484; 85025; 90471; 90686; 93005; 93017; 96372; A9500; G0008; G0378; J0153; J1650

== ENCOUNTER 2019-08-06 17:21 | Emergency (ER) | payer OTHER, SELFPAY ==
--- NOTE | 2019-08-06 17:54 | RAD ---
EXAM: XR Knee Rt 4 View STANDARD PROVIDED CLINICAL HISTORY: Pain FINDINGS: There is no evidence for fracture or other acute osseous abnormality. Alignment appears anatomic. Afua nt spaces appear preserved. Moderate knee joint capsular distention, likely reflecting effusion. IMPRESSION: No evidence for an acute osseous abnormality. If there is persistent clinical concern, conservative m anagement and follow-up imaging advised.
== END 2019-08-06 18:40 | disposition home or self-care (01) ==
LOC: ERS 17:21
DX: M23.91 Unspecified internal derangement of right knee (principal); I25.2 Old myocardial infarction; I10 Essential (primary) hypertension

== ENCOUNTER 2019-08-28 21:45 | Emergency (ER) | payer SELFPAY ==
--- NOTE | 2019-08-28 22:14 | RAD ---
Exam:Right knee 4 views HISTORY: Pain. Injury. COMPARISON: 08/06/2019 FINDINGS: Stable capsular distention, due to joint effusion. No fracture. No cortical irregularity. N o periosteal reaction. Stable joint space heights. IMPRESSION: No fracture. Stable joint effusion. If there is concern for internal derangement, conside r MRI.
[2019-08-28] MEDS ORDERED: HYDROcodone/Acetaminophen 5/325 mg Tablet ONE (22:41)
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
== END 2019-08-28 23:42 | disposition home or self-care (01) ==
LOC: ERS 21:45
DX: S39.012A Strain of muscle, fascia and tendon of lower back, initial encounter (principal); S80.01XA Contusion of right knee, initial encounter; I25.2 Old myocardial infarction; I10 Essential (primary) hypertension; I25.10 Atherosclerotic heart disease of native coronary artery without angina pectoris; F41.9 Anxiety disorder, unspecified; F32.9 Major depressive disorder, single episode, unspecified; V87.8XXA Person injured in other specified noncollision transport accidents involving motor vehicle (traffic), initial encounter
CPT/HCPCS: 72131

== ENCOUNTER 2020-01-24 16:26 | Emergency (ER) | payer OTHER ==
[2020-01-24 17:57] LABS: #Basophils 0.1 thou/uL (0.0-0.2); #Eosinphils 0.2 thou/uL (0.0-0.7); #Lymphocytes 2.1 thou/uL (1.20-3.40); #Monocytes 0.5 thou/uL (0.11-0.59); %Basophils 0.7 % (0.0-1.0); %Eosinophils 2.4 % (0.0-10.0); %Lymphocytes 26.7 % (21.0-51.0); %Monocytes 6.5 % (0.0-10.0); %Neutrophils 63.8 % (42.0-75.0); Hemoglobin 12.8 g/dL (14.0-18.0); Mean Corpuscular HGB CONC 32.7 g/dL (32.0-36.0); Mean Corpuscular Hemoglobin 29.9 pg (27.0-31.0); Mean Corpuscular Volume 91.4 fL (78.0-98.0); Mean Platelet Volume 6.4 fL (7.4-10.4); Platelet Count 244 thou/uL (130-400); RBC Distribution Width 12.4 % (11.5-14.5); Red Blood Cell (RBC) Count 4.28 mill/uL (4.70-6.10); White Blood Cell (WBC) Count 7.8 thou/uL (4.8-10.8)
[2020-01-24 18:14] LABS: ALT (SGPT) 20 U/L (8-55); AST (SGOT) 20 U/L (5-34); Albumin 3.9 g/dL (3.5-5.0); Alkaline Phosphatase 71 U/L (40-110); Anion Gap 12 mmol/L (10-20); BUN (Urea Nitrogen) 17 mg/dL (8.4-25.7); Bilirubin, Total 0.4 mg/dL (0.2-1.2); Calc. Creatinine Clearance 0 mL/min (70-130); Calcium 8.9 mg/dL (7.8-10.44); Carbon Dioxide 29 mmol/L (22-29); Chloride 100 mmol/L (98-107); Estimated GFR-MDRD Greater than 90; Globulin 2.5 g/dL (2.4-3.5); Glucose 147 mg/dL (70-105); Protein, Total 6.4 g/dL (6.0-8.3); Sodium 137 mmol/L (136-145)
== END 2020-01-24 19:47 | disposition home or self-care (01) ==
LOC: ERS 16:26
DX: R55 Syncope and collapse (principal); I25.2 Old myocardial infarction; I10 Essential (primary) hypertension; I25.10 Atherosclerotic heart disease of native coronary artery without angina pectoris; F41.9 Anxiety disorder, unspecified; F32.9 Major depressive disorder, single episode, unspecified
CPT/HCPCS: 36415; 80053; 82550; 84484; 85025; 93005; 96360

== ENCOUNTER 2020-04-16 19:00 | Outpatient (CLI) | payer OTHER | END 2020-04-16 19:01 | disposition home or self-care (01) | LOC: SLEEPLAB 19:00 | PROVIDERS: ATTEND Family Medicine | DX: G47.33 Obstructive sleep apnea (adult) (pediatric) (principal); R06.83 Snoring; I10 Essential (primary) hypertension; G47.00 Insomnia, unspecified; G47.10 Hypersomnia, unspecified; I25.10 Atherosclerotic heart disease of native coronary artery without angina pectoris; F41.8 Other specified anxiety disorders; E66.9 Obesity, unspecified; Z68.41 Body mass index [BMI] 40.0-44.9, adult | CPT/HCPCS: 95811 ==

== ENCOUNTER 2020-11-28 08:46 | Emergency (ER) | payer OTHER ==
[2020-11-28 09:24] LABS: #Basophils 0.1 thou/uL (0.0-0.2); #Eosinphils 0.2 thou/uL (0.0-0.7); #Lymphocytes 1.5 thou/uL (1.20-3.40); #Monocytes 0.4 thou/uL (0.11-0.59); #Neutrophils 4.4 thou/uL (1.40-6.50); %Eosinophils 2.9 % (0.0-10.0); %Lymphocytes 23.4 % (21.0-51.0); %Neutrophils 66.7 % (42.0-75.0); Hemoglobin 12.5 g/dL (14.0-18.0); Mean Corpuscular HGB CONC 32.5 g/dL (32.0-36.0); Mean Corpuscular Hemoglobin 29.3 pg (27.0-31.0); Mean Corpuscular Volume 90.2 fL (78.0-98.0); Mean Platelet Volume 6.6 fL (7.4-10.4); Platelet Count 247 thou/uL (130-400); RBC Distribution Width 12.3 % (11.5-14.5); Red Blood Cell (RBC) Count 4.27 mill/uL (4.70-6.10); White Blood Cell (WBC) Count 6.6 thou/uL (4.8-10.8)
[2020-11-28 09:46] LABS: Acetaminophen Less than 6.0 mcg/mL (10.0-30.0); Alcohol Less than 10 mg/dL (Less than 10); Salicylate Less than 8.0 mg/dL (15.0-30.0)
[2020-11-28 09:47] LABS: ALT (SGPT) 21 U/L (8-55); AST (SGOT) 19 U/L (5-34); Albumin 3.8 g/dL (3.5-5.0); Alkaline Phosphatase 78 U/L (40-110); Anion Gap 12 mmol/L (10-20); BUN (Urea Nitrogen) 12 mg/dL (8.4-25.7); Bilirubin, Total 0.7 mg/dL (0.2-1.2); Calc. Creatinine Clearance 0 mL/min (70-130); Calcium 8.9 mg/dL (7.8-10.44); Carbon Dioxide 27 mmol/L (22-29); Chloride 103 mmol/L (98-107); Globulin 2.6 g/dL (2.4-3.5); Glucose 102 mg/dL (70-105); Potassium 3.5 mmol/L (3.5-5.1); Protein, Total 6.4 g/dL (6.0-8.3); Sodium 138 mmol/L (136-145)
[2020-11-28 10:17] LABS: Bilirubin Negative (Negative); Blood, Urine Negative (Negative); Clarity Clear (Clear); Glucose, Urine (Dipstick) Normal (Negative); Ketone, Urine Negative (Negative); Leukocyte Negative Leu/uL (Negative); Nitrite Negative (Negative); Protein, Urine (Dipstick) Negative (Neg-Trace); Specific Gravity, Urine 1.019 (1.002-1.036); Urobilinogen Normal mg/dL (Less than 2)
[2020-11-28 10:27] LABS: Amphetamine Not Detected (NotDetected); Barbiturates Screen Not Detected (NotDetected); Benzodiazepine Screen Not Detected (NotDetected); Cocaine Metabolite Screen Not Detected (NotDetected); Medtox Control Line Valid? VALID (VALID); Medtox Reader # READER 4; Methadone Not Detected (NotDetected); Methamphetamine Not Detected (NotDetected); Opiate Screen Not Detected (NotDetected); Oxycodone Screen Not Detected (NotDetected); Phencyclidine (PCP) Not Detected (NotDetected); THC/Cannabinoid Screen Not Detected (NotDetected); Tricyclic Screen Not Detected (NotDetected)
== END 2020-11-28 11:03 | disposition home or self-care (01) ==
LOC: ERS 08:46
DX: G40.409 Other generalized epilepsy and epileptic syndromes, not intractable, without status epilepticus (principal); M25.511 Pain in right shoulder; I25.2 Old myocardial infarction; I10 Essential (primary) hypertension; I25.10 Atherosclerotic heart disease of native coronary artery without angina pectoris; Z79.899 Other long term (current) drug therapy; Z79.82 Long term (current) use of aspirin
CPT/HCPCS: 36415; 70450; 71045; 80053; 80306; 80307; 81003; 84484; 85025; 93005

== ENCOUNTER 2020-12-08 00:24 | Emergency (ER) | payer OTHER ==
[2020-12-08] MEDS ORDERED: Ketorolac Tromethamine 30 MG/ML VIAL ONE (00:42)
[2020-12-08 01:00] LABS: Bacteria/HPF None Seen HPF (None Seen); Bilirubin Negative (Negative); Blood, Urine 1+ (Negative); Clarity Clear (Clear); Glucose, Urine (Dipstick) Normal (Negative); Ketone, Urine Negative (Negative); Leukocyte Negative Leu/uL (Negative); Nitrite Negative (Negative); Protein, Urine (Dipstick) Negative (Neg-Trace); Specific Gravity, Urine 1.012 (1.002-1.036); Squamous Epithelial None Seen HPF (0-3); Urobilinogen Normal mg/dL (Less than 2); WBC/HPF 0-3 HPF (0-3)
[2020-12-08 01:36] LABS: ALT (SGPT) 14 U/L (8-55); AST (SGOT) 15 U/L (5-34); Albumin 3.7 g/dL (3.5-5.0); Alkaline Phosphatase 71 U/L (40-110); Anion Gap 10 mmol/L (10-20); BUN (Urea Nitrogen) 18 mg/dL (8.4-25.7); Bilirubin, Total 0.5 mg/dL (0.2-1.2); Calc. Creatinine Clearance 0 mL/min (70-130); Calcium 8.8 mg/dL (7.8-10.44); Carbon Dioxide 27 mmol/L (22-29); Chloride 103 mmol/L (98-107); Globulin 2.5 g/dL (2.4-3.5); Glucose 122 mg/dL (70-105); Potassium 3.4 mmol/L (3.5-5.1); Protein, Total 6.2 g/dL (6.0-8.3); Sodium 137 mmol/L (136-145)
== END 2020-12-08 01:59 | disposition home or self-care (01) ==
LOC: ERS 00:24
DX: N13.2 Hydronephrosis with renal and ureteral calculous obstruction (principal); I11.0 Hypertensive heart disease with heart failure; I50.9 Heart failure, unspecified; I25.10 Atherosclerotic heart disease of native coronary artery without angina pectoris; I25.2 Old myocardial infarction; Z79.82 Long term (current) use of aspirin; Z79.899 Other long term (current) drug therapy
CPT/HCPCS: 36415; 74176; 80053; 81003; 81015; 96372; J1885

== ENCOUNTER 2020-12-27 16:13 | Outpatient (CLI) | payer OTHER ==
[2020-12-27 17:57] LABS: Bilirubin Neg (Negative); Blood, Urine 25 (Negative); Clarity Clear (Clear); Glucose, Urine (Dipstick) Normal (Negative); Ketone, Urine Negative (Negative); Leukocyte Negative (Negative); Nitrite Negative (Negative); Protein, Urine (Dipstick) 30 mg/dl (Neg-Trace); Specific Gravity, Urine 1.015 (1.002-1.036); pH, Urine 6.5 (5.0-9.0)
[2020-12-27 17:58] LABS: Hemoglobin 11.8 g/dL (13.5-17.5); Mean Corpuscular HGB CONC 30.7 g/dL (32.0-36.0); Mean Corpuscular Hemoglobin 27.4 pg (27.0-33.0); Mean Corpuscular Volume 89.3 fl (81.2-95.1); Mean Platelet Volume 9.4 fl (7.4-10.4); Platelet Count 268 10x3/uL (150-450); RBC Distribution Width 13.7 % (11.5-14.5)
[2020-12-27 18:09] LABS: Anion Gap 12 mmol/L (10-20); BUN (Urea Nitrogen) 20 mg/dL (8.4-25.7); Calc. Creatinine Clearance 0 mL/min (70-130); Calcium 8.8 mg/dL (7.8-10.44); Carbon Dioxide 31 mmol/L (22-29); Chloride 99 mmol/L (98-107); Glucose 112 mg/dL (70-105); INR-International Normal Ratio 1.1; PTT 26.8 sec (22.0-33.0); Potassium 3.8 mmol/L (3.5-5.1); Prothrombin Time 12.5 sec (9.5-12.1); Sodium 138 mmol/L (136-145)
[2020-12-27 18:12] LABS: RBC/HPF 0-3 HPF (0-3); Squamous Epithelial 0-3 HPF (0-3); WBC/HPF 0-3 HPF (0-3)
[2020-12-27 18:13] LABS: Bacteria/HPF Rare-Few HPF (None Seen)
[2020-12-28 00:48] LABS: SARS-CoV-2 PCR by NAA Not Detected (NotDetected)
== END 2020-12-27 16:14 | disposition home or self-care (01) ==
LOC: LABBT 16:13
PROVIDERS: ATTEND Urology
DX: Z01.818 Encounter for other preprocedural examination (principal); N20.2 Calculus of kidney with calculus of ureter; N39.41 Urge incontinence; N40.1 Benign prostatic hyperplasia with lower urinary tract symptoms; N39.43 Post-void dribbling; N52.01 Erectile dysfunction due to arterial insufficiency; N47.7 Other inflammatory diseases of prepuce; E66.01 Morbid (severe) obesity due to excess calories; Z20.822 Contact with and (suspected) exposure to COVID-19
CPT/HCPCS: 80048; 81001; 85027; 85610; 85730; 87086; 87635; U0003; U0005

== ENCOUNTER 2020-12-30 07:28 | Inpatient (IN) | payer OTHER ==
[2020-12-30] MEDS ORDERED: cefTRIAXone\\ROCEPHIN 1 GM VIAL ONE (08:34)
[2020-12-30] MEDS ORDERED: Sodium Chloride 0.9% 100 ML ONE (08:34)
[2020-12-30] MEDS ORDERED: Iothalamate Meglumine 60% 50 ML VIAL FS ONE (09:03)
[2020-12-30] MEDS ORDERED: B & O ONE (09:03)
[2020-12-30] MEDS ORDERED: Fentanyl 100 MCG/2 ML VIAL ONE (09:36)
[2020-12-30] MEDS ORDERED: Ondansetron PF 4 MG/2 ML Vial ONE (09:38)
[2020-12-30] MEDS ORDERED: ePHEDrine Sulfate 50 MG/10 ML VIAL ONE (09:38)
[2020-12-30] MEDS ORDERED: diphenhydrAMINE 50 MG/ML VIAL ONE (09:38)
[2020-12-30] MEDS ORDERED: Dexamethasone 20 MG/5 ML VIAL ONE (09:38)
[2020-12-30] MEDS ORDERED: Glycopyrrolate 0.2 MG/ML 5 ML SYRINGE ONE (09:38)
[2020-12-30] MEDS ORDERED: PROPOFOL 200 MG/20 ML VIAL ONE (09:38)
[2020-12-30] MEDS ORDERED: Rocuronium Bromide 10 MG/ML (10ML VIAL) ONE (09:38)
[2020-12-30] MEDS ORDERED: hydrALAZINE 20 MG/ML VIAL ONE ×2 (11:45→13:29)
[2020-12-30] MEDS ORDERED: Nitroglycerin 0.4 MG TAB (25 Tab Bottle) ONE (13:23)
[2020-12-30] MEDS ORDERED: Aspirin 325 MG TAB ONE (13:25)
[2020-12-30] MEDS ORDERED: Nitroglycerin 2% Ointment 1 INCH/1 GM Packet ONE (13:27)
[2020-12-30] MEDS ORDERED: Metoprolol Tartrate 5 MG/5 ML VIAL ONE ×2 (13:31→13:33)
[2020-12-30] MEDS ORDERED: Heparin 25,000 units/D5W 500 ML IVPB SCH (14:15)
[2020-12-30] MEDS ORDERED: Heparin 10,000 UNITS/ 10 ML VIAL SLOW IVP SCH (14:15)
[2020-12-30] MEDS ORDERED: Heparin 5,000 UNITS/ML VIAL SLOW IVP SCH (14:15)
[2020-12-30] MEDS ORDERED: Nitroglycerin 50 MG/250 ML BOT 250 ML IVPB SCH (14:15)
[2020-12-30] MEDS ORDERED: Heparin 5,000 UNITS/ML VIAL ONE (14:25)
[2020-12-30 14:45] LABS: Hemoglobin 13.7 g/dL (14.0-18.0); Platelet Count 267 thou/uL (130-400)
[2020-12-30] MEDS ORDERED: Nitroglycerin 50 MG/250 ML BOT 250 ML ONE (14:51)
[2020-12-30] MEDS ORDERED: EPINEPHrine 1 MG/10 ML Abboject SYRINGE ONE (16:59)
[2020-12-30 17:14] LABS: Troponin I 0.026 ng/mL (< 0.028)
[2020-12-30 17:31] LABS: Hemoglobin A1c 5.7 % (4.0-6.0)
[2020-12-30 17:40] LABS: Magnesium 1.8 mg/dL (1.6-2.6); Phosphorus 3.1 mg/dL (2.3-4.7)
[2020-12-30] MEDS: Carvedilol 6.25 MG TAB PO SCH (17:55)
[2020-12-30 17:57] LABS: Free T4 (Free Thyroxine) 0.76 ng/dL (0.70-1.48); Thyroid Stimulating Hormone 1.5403 uIU/mL (0.35-4.94)
[2020-12-30] MEDS ORDERED: Enoxaparin Sodium 40 MG/0.4 ML SYRINGE SC SCH (19:15)
[2020-12-30] MEDS ORDERED: Amlodipine 5 MG TAB PO SCH (19:30)
[2020-12-30] MEDS: Gabapentin 300 MG CAP PO SCH (20:06)
[2020-12-30] MEDS: Atorvastatin Calcium 40 MG TAB PO SCH (20:07)
[2020-12-30] MEDS: OXcarbazepine 300 MG TAB PO SCH (20:08)
[2020-12-30 20:38] LABS: Troponin I 0.097 ng/mL (< 0.028)
[2020-12-30] MEDS ORDERED: Lisinopril 10 MG TAB PO SCH (21:00)
[2020-12-30] MEDS ORDERED: Atorvastatin Calcium 40 MG TAB PO SCH (21:00)
[2020-12-31] MEDS ORDERED: Acetaminophen 325 MG TAB PO PRN (03:16)
[2020-12-31 04:07] LABS: Cardiac Risk 2.7 (Less than 4.5)
[2020-12-31 04:24] LABS: Troponin I 0.173 ng/mL (< 0.028)
[2020-12-31] MEDS: Levothyroxine Sodium 75 MCG TAB PO SCH (06:28)
[2020-12-31 07:26] LABS: #Basophils 0.1 thou/uL (0.0-0.2); #Monocytes 0.8 thou/uL (0.11-0.59); #Neutrophils 9.6 thou/uL (1.40-6.50); %Basophils 0.6 % (0.0-1.0); %Eosinophils 0.2 % (0.0-10.0); %Lymphocytes 16.2 % (21.0-51.0); %Monocytes 6.7 % (0.0-10.0); %Neutrophils 76.2 % (42.0-75.0); Hemoglobin 11.4 g/dL (14.0-18.0); Mean Corpuscular HGB CONC 32.4 g/dL (32.0-36.0); Mean Corpuscular Hemoglobin 29.3 pg (27.0-31.0); Mean Corpuscular Volume 90.7 fL (78.0-98.0); Mean Platelet Volume 6.7 fL (7.4-10.4); Platelet Count 255 thou/uL (130-400); RBC Distribution Width 12.7 % (11.5-14.5); Red Blood Cell (RBC) Count 3.88 mill/uL (4.70-6.10); White Blood Cell (WBC) Count 12.5 thou/uL (4.8-10.8)
[2020-12-31 07:48] LABS: ALT (SGPT) 14 U/L (8-55); AST (SGOT) 14 U/L (5-34); Albumin 3.3 g/dL (3.5-5.0); Alkaline Phosphatase 71 U/L (40-110); Anion Gap 10 mmol/L (10-20); BUN (Urea Nitrogen) 17 mg/dL (8.4-25.7); Bilirubin, Total 0.4 mg/dL (0.2-1.2); Calc. Creatinine Clearance 111 mL/min (70-130); Calcium 8.2 mg/dL (7.8-10.44); Carbon Dioxide 29 mmol/L (22-29); Chloride 103 mmol/L (98-107); Globulin 2.3 g/dL (2.4-3.5); Glucose 124 mg/dL (70-105); Potassium 3.4 mmol/L (3.5-5.1); Protein, Total 5.6 g/dL (6.0-8.3); Sodium 139 mmol/L (136-145)
[2020-12-31] MEDS ORDERED: Nitroglycerin 50 MG/250 ML BOT 250 ML IVPB SCH (08:53)
[2020-12-31] MEDS: Carvedilol 6.25 MG TAB PO SCH ×2 (09:07→19:53)
[2020-12-31] MEDS: Gabapentin 300 MG CAP PO SCH ×2 (09:07→21:50)
[2020-12-31] MEDS: Venlafaxine HCl XR 150 MG CAP PO SCH (09:07)
[2020-12-31] MEDS: Amlodipine 5 MG TAB PO SCH (09:07)
[2020-12-31] MEDS: Aspirin 81 mg Enteric Coated Tablet PO SCH (09:07)
[2020-12-31] MEDS: Lisinopril 20 MG TAB PO SCH (09:16)
[2020-12-31] MEDS: OXcarbazepine 300 MG TAB PO SCH ×2 (09:18→21:51)
[2020-12-31 09:52] LABS: Clarity Hazy (Clear)
[2020-12-31 09:53] LABS: Specific Gravity, Urine 1.014 (1.002-1.036)
[2020-12-31 09:56] LABS: pH, Urine 6.4 (5.0-9.0)
[2020-12-31 09:57] LABS: Leukocyte Unable to Interpret (Negative); Nitrite Unable to Interpret (Negative); Protein, Urine (Dipstick) Unable to Interpret mg/dL (Neg-Trace)
[2020-12-31 09:58] LABS: Glucose, Urine (Dipstick) Unable to Interpret mg/dL (Negative); Ketone, Urine Unable to Interpret mg/dL (Negative)
[2020-12-31 09:59] LABS: Bilirubin Unable to Interpret (Negative); Blood, Urine Unable to Interpret (Negative); Urobilinogen UNABLE TO INTERPRET mg/dL (Less than 2)
[2020-12-31 10:03] LABS: RBC/HPF Greater than 50 HPF (0-3)
[2020-12-31 10:04] LABS: Bacteria/HPF Rare-Few HPF (None Seen); Squamous Epithelial None Seen HPF (0-3)
[2020-12-31 10:05] LABS: Urine Culture Reflex Yes Yes
[2020-12-31 11:09] VITALS: BMI 37.8
[2020-12-31] MEDS: Atorvastatin Calcium 40 MG TAB PO SCH (21:52)
[2021-01-01 04:38] LABS: #Basophils 0.1 thou/uL (0.0-0.2); #Eosinphils 0.3 thou/uL (0.0-0.7); #Neutrophils 5.8 thou/uL (1.40-6.50); %Basophils 0.8 % (0.0-1.0); %Eosinophils 3.2 % (0.0-10.0); %Lymphocytes 21.7 % (21.0-51.0); %Neutrophils 63.4 % (42.0-75.0); Hemoglobin 12.1 g/dL (14.0-18.0); Mean Corpuscular HGB CONC 31.8 g/dL (32.0-36.0); Mean Corpuscular Hemoglobin 28.7 pg (27.0-31.0); Mean Corpuscular Volume 90.2 fL (78.0-98.0); Mean Platelet Volume 6.8 fL (7.4-10.4); Platelet Count 251 thou/uL (130-400); Red Blood Cell (RBC) Count 4.22 mill/uL (4.70-6.10); White Blood Cell (WBC) Count 9.1 thou/uL (4.8-10.8)
[2021-01-01 05:02] LABS: ALT (SGPT) 13 U/L (8-55); AST (SGOT) 12 U/L (5-34); Albumin 3.4 g/dL (3.5-5.0); Alkaline Phosphatase 73 U/L (40-110); Anion Gap 11 mmol/L (10-20); BUN (Urea Nitrogen) 19 mg/dL (8.4-25.7); Bilirubin, Total 0.5 mg/dL (0.2-1.2); Calc. Creatinine Clearance 137 mL/min (70-130); Calcium 8.2 mg/dL (7.8-10.44); Carbon Dioxide 29 mmol/L (22-29); Chloride 105 mmol/L (98-107); Globulin 2.1 g/dL (2.4-3.5); Glucose 90 mg/dL (70-105); Potassium 3.6 mmol/L (3.5-5.1); Protein, Total 5.5 g/dL (6.0-8.3); Sodium 141 mmol/L (136-145)
[2021-01-01 05:04] LABS: Troponin I 0.112 ng/mL (< 0.028)
[2021-01-01] MEDS: Levothyroxine Sodium 75 MCG TAB PO SCH (05:57)
[2021-01-01] MEDS ORDERED: ADENOSINE 60 MG/20 ML VIAL ONE (09:25)
[2021-01-01] MEDS: Carvedilol 6.25 MG TAB PO SCH ×2 (15:01→17:03)
[2021-01-01] MEDS: Gabapentin 300 MG CAP PO SCH (15:01)
[2021-01-01] MEDS: OXcarbazepine 300 MG TAB PO SCH (15:02)
[2021-01-01 15:07] VITALS: BP 159/89; TEMP 99.8
[2021-01-01] MEDS: Amlodipine 5 MG TAB PO SCH (15:11)
[2021-01-01] MEDS: Lisinopril 20 MG TAB PO SCH (15:11)
[2021-01-01] MEDS: Aspirin 81 mg Enteric Coated Tablet PO SCH (15:11)
[2021-01-01] MEDS: Venlafaxine HCl XR 150 MG CAP PO SCH (15:11)
[2021-01-01 15:28] LABS: Hemoglobin 12.5 g/dL (14.0-18.0); Platelet Count 227 thou/uL (130-400)
== END 2021-01-01 18:38 | disposition home or self-care (01) | DRG 982 ==
LOC: SDC 07:28 → CCU 14:36 → 2NO 12-31 19:08
PROVIDERS: ADMIT Urology; ATTEND Urology
PROC: 0TC18ZZ Extirpation of Matter from Left Kidney, Via Natural or Artificial Opening Endoscopic (ICD-10-PCS; principal; 2020-12-30)
PROC: 0TC08ZZ Extirpation of Matter from Right Kidney, Via Natural or Artificial Opening Endoscopic (ICD-10-PCS; 2020-12-30)
PROC: 0T788DZ Dilation of Bilateral Ureters with Intraluminal Device, Via Natural or Artificial Opening Endoscopic (ICD-10-PCS; 2020-12-30)
PROC: 0TJB8ZZ Inspection of Bladder, Via Natural or Artificial Opening Endoscopic (ICD-10-PCS; 2020-12-30)
DX: I16.0 Hypertensive urgency (principal); N20.2 Calculus of kidney with calculus of ureter; E27.40 Unspecified adrenocortical insufficiency; Z68.41 Body mass index [BMI] 40.0-44.9, adult; N40.1 Benign prostatic hyperplasia with lower urinary tract symptoms; N39.43 Post-void dribbling; N52.01 Erectile dysfunction due to arterial insufficiency; N47.7 Other inflammatory diseases of prepuce; N13.5 Crossing vessel and stricture of ureter without hydronephrosis; E78.5 Hyperlipidemia, unspecified; E03.9 Hypothyroidism, unspecified; E66.01 Morbid (severe) obesity due to excess calories; I10 Essential (primary) hypertension; I25.10 Atherosclerotic heart disease of native coronary artery without angina pectoris; G89.18 Other acute postprocedural pain; R07.9 Chest pain, unspecified; R73.03 Prediabetes; I35.1 Nonrheumatic aortic (valve) insufficiency; G40.909 Epilepsy, unspecified, not intractable, without status epilepticus; R31.0 Gross hematuria; Z95.1 Presence of aortocoronary bypass graft; Z95.5 Presence of coronary angioplasty implant and graft; Z87.891 Personal history of nicotine dependence; I25.2 Old myocardial infarction; Z88.1 Allergy status to other antibiotic agents; Z88.8 Allergy status to other drugs, medicaments and biological substances; Z79.82 Long term (current) use of aspirin; Z79.899 Other long term (current) drug therapy; Z90.49 Acquired absence of other specified parts of digestive tract
CPT/HCPCS: 36415; 71045; 76000; 78452; 80053; 80061; 81001; 82365; 83036; 83735; 84100; 84439; 84443; 84481; 84484; 85014; 85018; 85025; 85049; 85730; 87086; 88300; 93005; 93010; 93017; A9500; J0153; J0360; J0696; J1100; J1200; J1644; J1650; J2405; J2704; J3010; J3490; Q9961

== ENCOUNTER 2021-12-25 15:39 | Emergency (ER) | payer OTHER ==
[2021-12-25 16:26] LABS: #Eosinphils 0.2 thou/uL (0.0-0.7); #Lymphocytes 1.7 thou/uL (1.20-3.40); #Monocytes 0.6 thou/uL (0.11-0.59); #Neutrophils 4.7 thou/uL (1.40-6.50); %Basophils 0.4 % (0.0-1.0); %Eosinophils 3.3 % (0.0-10.0); %Lymphocytes 23.1 % (21.0-51.0); %Monocytes 7.7 % (0.0-10.0); %Neutrophils 65.5 % (42.0-75.0); Hemoglobin 11.2 g/dL (14.0-18.0); Mean Corpuscular HGB CONC 31.3 g/dL (32.0-36.0); Mean Corpuscular Hemoglobin 28.3 pg (27.0-31.0); Mean Corpuscular Volume 90.6 fL (78.0-98.0); Mean Platelet Volume 6.2 fL (7.4-10.4); Platelet Count 302 thou/uL (130-400); RBC Distribution Width 13.1 % (11.5-14.5); Red Blood Cell (RBC) Count 3.95 mill/uL (4.70-6.10); White Blood Cell (WBC) Count 7.1 thou/uL (4.8-10.8)
[2021-12-25 16:55] LABS: ALT (SGPT) 21 U/L (8-55); AST (SGOT) 21 U/L (5-34); Albumin 3.9 g/dL (3.5-5.0); Alkaline Phosphatase 79 U/L (40-110); Anion Gap 13 mmol/L (10-20); BUN (Urea Nitrogen) 20 mg/dL (8.4-25.7); Bilirubin, Total 0.7 mg/dL (0.2-1.2); CK (CPK) 442 U/L (30-200); Calc. Creatinine Clearance 0 mL/min (70-130); Calcium 8.5 mg/dL (7.8-10.44); Carbon Dioxide 29 mmol/L (22-29); Chloride 100 mmol/L (98-107); Globulin 2.8 g/dL (2.4-3.5); Glucose 122 mg/dL (70-105); Lipase 23 U/L (8-78); Protein, Total 6.7 g/dL (6.0-8.3); Sodium 139 mmol/L (136-145)
[2021-12-25 16:59] LABS: Potassium 2.8 mmol/L (3.5-5.1)
[2021-12-25] MEDS ORDERED: Potassium Chloride 20 MEQ TAB ONE (17:14)
== END 2021-12-25 17:45 | disposition home or self-care (01) ==
LOC: ERS 15:39
DX: E86.0 Dehydration (principal); E87.6 Hypokalemia; I25.2 Old myocardial infarction; I10 Essential (primary) hypertension; Z79.899 Other long term (current) drug therapy
CPT/HCPCS: 80053; 82550; 83690; 84484; 85025; 93005; 96360

== ENCOUNTER 2022-03-30 08:05 | Emergency (ER) | payer OTHER ==
[2022-03-30 09:14] LABS: #Eosinphils 0.1 thou/uL (0.0-0.7); #Lymphocytes 0.6 thou/uL (1.20-3.40); #Monocytes 0.6 thou/uL (0.11-0.59); #Neutrophils 4.1 thou/uL (1.40-6.50); %Basophils 0.4 % (0.0-1.0); %Eosinophils 2.7 % (0.0-10.0); %Lymphocytes 10.5 % (21.0-51.0); %Monocytes 11.5 % (0.0-10.0); %Neutrophils 74.9 % (42.0-75.0); Hemoglobin 13.4 g/dL (14.0-18.0); Mean Corpuscular HGB CONC 32.2 g/dL (32.0-36.0); Mean Corpuscular Hemoglobin 28.5 pg (27.0-31.0); Mean Corpuscular Volume 88.4 fL (78.0-98.0); Mean Platelet Volume 6.2 fL (7.4-10.4); Platelet Count 237 thou/uL (130-400); RBC Distribution Width 13.7 % (11.5-14.5); Red Blood Cell (RBC) Count 4.71 mill/uL (4.70-6.10); White Blood Cell (WBC) Count 5.5 thou/uL (4.8-10.8)
[2022-03-30 09:33] LABS: Anion Gap 13 mmol/L (10-20); BUN (Urea Nitrogen) 16 mg/dL (8.4-25.7); Calc. Creatinine Clearance 0 mL/min (70-130); Carbon Dioxide 29 mmol/L (22-29); Chloride 99 mmol/L (98-107); Sodium 138 mmol/L (136-145)
[2022-03-30 09:34] LABS: ALT (SGPT) 22 U/L (8-55); AST (SGOT) 19 U/L (5-34); Albumin 3.9 g/dL (3.5-5.0); Alkaline Phosphatase 79 U/L (40-110); Bilirubin, Total 0.6 mg/dL (0.2-1.2); Calcium 8.8 mg/dL (7.8-10.44); Estimated GFR 102; Globulin 2.8 g/dL (2.4-3.5); Glucose 109 mg/dL (70-105); Protein, Total 6.7 g/dL (6.0-8.3)
[2022-03-30] MEDS ORDERED: Potassium Chloride 20 MEQ TAB ONE (10:31)
== END 2022-03-30 11:02 | disposition home or self-care (01) ==
LOC: ERS 08:05
DX: U07.1 COVID-19 (principal); E87.6 Hypokalemia; I25.2 Old myocardial infarction; I10 Essential (primary) hypertension; Z79.899 Other long term (current) drug therapy; Z79.82 Long term (current) use of aspirin
CPT/HCPCS: 71045; 80053; 83880; 84484; 85025; 93005; U0003; U0005

== ENCOUNTER 2022-12-11 16:23 | Observation (INO) | payer SELFPAY ==
[2022-12-11 20:26] VITALS: BMI 41.9
[2022-12-11] MEDS ORDERED: Acetaminophen 325 MG TAB PO PRN (21:50)
[2022-12-11] MEDS ORDERED: Ondansetron ODT 4 MG TAB PO PRN (21:50)
[2022-12-11] MEDS ORDERED: Ondansetron PF 4 MG/2 ML Vial IVP PRN (21:50)
[2022-12-12 04:44] LABS: #Basophils 0.1 thou/uL (0.0-0.2); #Eosinphils 0.3 thou/uL (0.0-0.7); #Monocytes 0.7 thou/uL (0.11-0.59); #Neutrophils 5.3 thou/uL (1.40-6.50); %Basophils 0.6 % (0.0-1.0); %Eosinophils 3.3 % (0.0-10.0); %Lymphocytes 24.6 % (21.0-51.0); %Monocytes 8.6 % (0.0-10.0); %Neutrophils 62.5 % (42.0-75.0); Hemoglobin 11.8 g/dL (14.0-18.0); Mean Corpuscular HGB CONC 31.5 g/dL (32.0-36.0); Mean Corpuscular Hemoglobin 27.6 pg (27.0-31.0); Mean Corpuscular Volume 87.6 fl (78.0-98.0); Mean Platelet Volume 8.6 fL (7.4-10.4); Platelet Count 248 10x3/uL (130-400); RBC Distribution Width 14.4 % (11.5-14.5); Red Blood Cell (RBC) Count 4.28 mill/uL (4.70-6.10); White Blood Cell (WBC) Count 8.4 10x3/uL (4.8-10.8)
[2022-12-12 05:13] LABS: ALT (SGPT) 15 U/L (8-55); AST (SGOT) 13 U/L (5-34); Albumin 3.7 g/dL (3.5-5.0); Alkaline Phosphatase 71 U/L (40-110); Anion Gap 9 mmol/L (10-20); BUN (Urea Nitrogen) 16 mg/dL (8.4-25.7); Bilirubin, Total 0.4 mg/dL (0.2-1.2); Calc. Creatinine Clearance 159 mL/min (70-130); Calcium 9.1 mg/dL (7.8-10.44); Carbon Dioxide 33 mmol/L (22-29); Chloride 100 mmol/L (98-107); Estimated GFR 102; Globulin 2.6 g/dL (2.4-3.5); Glucose 104 mg/dL (70-105); Potassium 3.4 mmol/L (3.5-5.1); Protein, Total 6.3 g/dL (6.0-8.3); Sodium 139 mmol/L (136-145)
[2022-12-12] MEDS ORDERED: Levothyroxine Sodium 75 MCG TAB PO SCH (06:00)
[2022-12-12] MEDS ORDERED: Potassium Bicarbonate/Cit Ac 20 MEQ TAB PO SCH (08:00)
[2022-12-12] MEDS ORDERED: Chlorthalidone 25 MG TAB PO SCH (09:00)
[2022-12-12] MEDS ORDERED: Oxybutynin ER 5 MG TAB PO SCH (09:00)
[2022-12-12] MEDS ORDERED: Venlafaxine HCl XR 75 MG CAP PO SCH (09:00)
[2022-12-12] MEDS ORDERED: Amlodipine 10 MG TAB PO SCH (09:00)
[2022-12-12] MEDS ORDERED: Gabapentin 400 MG CAP PO SCH (09:00)
[2022-12-12] MEDS ORDERED: POTASSIUM 99 MG PO SCH (09:00)
[2022-12-12] MEDS ORDERED: Aspirin 81 mg Enteric Coated Tablet PO SCH (09:00)
[2022-12-12 12:38] VITALS: BP 133/75; TEMP 97.7
[2022-12-12] MEDS ORDERED: Atorvastatin Calcium 40 MG TAB PO SCH (21:00)
[2022-12-12] MEDS ORDERED: Lisinopril 20 MG TAB PO SCH (21:00)
== END 2022-12-12 13:45 | disposition home or self-care (01) ==
LOC: 2SW 20:12
PROVIDERS: ADMIT Emergency Medicine; ATTEND Emergency Medicine
DX: R07.89 Other chest pain (principal); E87.6 Hypokalemia; I25.10 Atherosclerotic heart disease of native coronary artery without angina pectoris; I25.2 Old myocardial infarction; I10 Essential (primary) hypertension; E78.5 Hyperlipidemia, unspecified; E03.9 Hypothyroidism, unspecified; G40.909 Epilepsy, unspecified, not intractable, without status epilepticus; N40.0 Benign prostatic hyperplasia without lower urinary tract symptoms; Z86.73 Personal history of transient ischemic attack (TIA), and cerebral infarction without residual deficits; Z87.891 Personal history of nicotine dependence; Z79.82 Long term (current) use of aspirin; Z79.890 Hormone replacement therapy; Z79.899 Other long term (current) drug therapy; Z88.1 Allergy status to other antibiotic agents; Z88.8 Allergy status to other drugs, medicaments and biological substances; Z95.1 Presence of aortocoronary bypass graft
CPT/HCPCS: 36415; 78452; 80053; 85025; 93017; 96372; A9500; G0378; J0153; J1650

== ENCOUNTER 2023-09-25 15:19 | Observation (INO) | payer OTHER ==
[~2023-09-25 15:19] MED LIST: Iopamidol-370 76% 500 ML MDV (1 ML CHARGE) ONE
[2023-09-25 16:17] LABS: #Eosinphils 0.2 thou/uL (0.0-0.7); #Monocytes 0.5 thou/uL (0.11-0.59); #Neutrophils 5.5 thou/uL (1.40-6.50); %Basophils 0.4 % (0.0-1.0); %Eosinophils 2.6 % (0.0-10.0); %Monocytes 6.6 % (0.0-10.0); %Neutrophils 68.2 % (42.0-75.0); Hematocrit 36.5 % (42.0-52.0); Mean Corpuscular HGB CONC 32.9 g/dL (32.0-36.0); Mean Corpuscular Hemoglobin 28.6 pg (27.0-31.0); Mean Corpuscular Volume 86.9 fl (78.0-98.0); Platelet Count 237 10x3/uL (130-400); RBC Distribution Width 14.3 % (11.5-14.5); White Blood Cell (WBC) Count 8.1 10x3/uL (4.8-10.8)
[2023-09-25 16:34] LABS: INR-International Normal Ratio 1.1; Prothrombin Time 14.6 sec (12.0-14.7)
[2023-09-25 16:44] LABS: ALT (SGPT) 21 U/L (8-55); AST (SGOT) 20 U/L (5-34); Albumin 3.6 g/dL (3.5-5.0); Alkaline Phosphatase 77 U/L (40-110); Anion Gap 10 mmol/L (10-20); BUN (Urea Nitrogen) 21 mg/dL (8.4-25.7); Bilirubin, Total 0.4 mg/dL (0.2-1.2); CK (CPK) 274 U/L (30-200); Calc. Creatinine Clearance 0 mL/min (70-130); Calcium 8.6 mg/dL (7.8-10.44); Carbon Dioxide 26 mmol/L (22-29); Chloride 104 mmol/L (98-107); Estimated GFR 83; Globulin 2.5 g/dL (2.4-3.5); Glucose 130 mg/dL (70-105); Potassium 3.5 mmol/L (3.5-5.1); Protein, Total 6.1 g/dL (6.0-8.3); Sodium 136 mmol/L (136-145)
[2023-09-25 16:47] LABS: Troponin I 0.014 ng/mL (< 0.028)
[2023-09-25] MEDS ORDERED: Ketorolac Tromethamine 30 MG (1 mL) VIAL ONE (18:53)
[2023-09-25] MEDS ORDERED: diphenhydrAMINE 50 MG/ML VIAL ONE (18:53)
[2023-09-25] MEDS ORDERED: Metoclopramide HCl 10 MG (2 mL) VIAL ONE (18:53)
[2023-09-25] MEDS ORDERED: methylPREDNISolone Sod Succ/PF 125 MG/2 ML VIAL ONE (18:54)
[2023-09-25] MEDS ORDERED: Aspirin Chewable 81 MG TAB ONE (19:32)
[2023-09-25] MEDS ORDERED: Ondansetron PF 4 MG/2 ML Vial IVP PRN (20:52)
[2023-09-25] MEDS ORDERED: Acetaminophen 325 MG TAB PO PRN (20:52)
[2023-09-25] MEDS ORDERED: Labetalol HCl 100 MG/20 ML VIAL SLOW IVP PRN (20:52)
[2023-09-25] MEDS ORDERED: hydrALAZINE 20 MG/ML VIAL SLOW IVP PRN (20:52)
[2023-09-25 23:00] VITALS: BMI 42.3
[2023-09-26 06:25] LABS: #Monocytes 0.1 thou/uL (0.11-0.59); #Neutrophils 8.9 thou/uL (1.40-6.50); %Basophils 0.1 % (0.0-1.0); %Lymphocytes 8.1 % (21.0-51.0); %Monocytes 0.9 % (0.0-10.0); %Neutrophils 90.6 % (42.0-75.0); Hematocrit 43.1 % (42.0-52.0); Hemoglobin 13.6 g/dL (14.0-18.0); Mean Corpuscular HGB CONC 31.6 g/dL (32.0-36.0); Mean Corpuscular Hemoglobin 27.9 pg (27.0-31.0); Mean Corpuscular Volume 88.3 fl (78.0-98.0); Platelet Count 302 10x3/uL (130-400); RBC Distribution Width 14.1 % (11.5-14.5); Red Blood Cell (RBC) Count 4.88 mill/uL (4.70-6.10); White Blood Cell (WBC) Count 9.8 10x3/uL (4.8-10.8)
[2023-09-26 06:34] LABS: Hemoglobin A1c 5.8 % (4.0-6.0)
[2023-09-26 06:55] LABS: Anion Gap 10 mmol/L (10-20); BUN (Urea Nitrogen) 22 mg/dL (8.4-25.7); Calc. Creatinine Clearance 160 mL/min (70-130); Calcium 8.6 mg/dL (7.8-10.44); Carbon Dioxide 27 mmol/L (22-29); Cardiac Risk 2.8 (Less than 4.5); Chloride 106 mmol/L (98-107); Cholesterol 161 mg/dl (< 200 Desired); Estimated GFR 102; Glucose 154 mg/dL (70-105); HDL Cholesterol 58 mg/dL (>60 Neg Risk); LDL Cholesterol, Calculated 93 mg/dL; Potassium 4.4 mmol/L (3.5-5.1); Sodium 139 mmol/L (136-145); Triglycerides 48 mg/dL (Less than 150)
[2023-09-26] MEDS: Aspirin 81 mg Enteric Coated Tablet PO SCH (07:50)
[2023-09-26] MEDS ORDERED: Lorazepam 2 MG/ML VIAL SLOW IVP PRN (08:18)
[2023-09-26] MEDS ORDERED: Lorazepam 2 MG/ML VIAL SLOW IVP SCH (08:30)
[2023-09-26] MEDS: LORazepam 2 MG/ML SYR.(CARPUJECT) IVP SCH (11:48)
[2023-09-26] MEDS: Atorvastatin Calcium 40 MG TAB PO SCH (21:41)
[2023-09-26] MEDS: Carvedilol 3.125 MG TAB PO SCH (21:41)
[2023-09-26] MEDS: Gabapentin 400 MG CAP PO SCH (21:41)
[2023-09-27] MEDS: Levothyroxine Sodium 75 MCG TAB PO SCH (05:49)
[2023-09-27 07:00] LABS: #Basophils 0.1 thou/uL (0.0-0.2); #Eosinphils 0.2 thou/uL (0.0-0.7); #Monocytes 0.9 thou/uL (0.11-0.59); #Neutrophils 6.5 thou/uL (1.40-6.50); %Basophils 0.5 % (0.0-1.0); %Eosinophils 1.5 % (0.0-10.0); %Lymphocytes 29.2 % (21.0-51.0); %Neutrophils 60.5 % (42.0-75.0); Hematocrit 38.9 % (42.0-52.0); Hemoglobin 12.4 g/dL (14.0-18.0); Mean Corpuscular HGB CONC 31.9 g/dL (32.0-36.0); Mean Corpuscular Hemoglobin 28.3 pg (27.0-31.0); Mean Corpuscular Volume 88.8 fl (78.0-98.0); Mean Platelet Volume 9.3 fL (7.4-10.4); Platelet Count 258 10x3/uL (130-400); RBC Distribution Width 14.4 % (11.5-14.5); Red Blood Cell (RBC) Count 4.38 mill/uL (4.70-6.10); White Blood Cell (WBC) Count 10.8 10x3/uL (4.8-10.8)
[2023-09-27 07:20] LABS: Anion Gap 11 mmol/L (10-20); BUN (Urea Nitrogen) 22 mg/dL (8.4-25.7); Calc. Creatinine Clearance 158 mL/min (70-130); Calcium 8.4 mg/dL (7.8-10.44); Carbon Dioxide 28 mmol/L (22-29); Chloride 105 mmol/L (98-107); Estimated GFR 102; Glucose 105 mg/dL (70-105); Potassium 3.5 mmol/L (3.5-5.1); Sodium 140 mmol/L (136-145)
[2023-09-27] MEDS: Clopidogrel Bisulfate 75 MG TAB PO SCH (11:02)
[2023-09-27] MEDS: Venlafaxine HCl XR 75 MG CAP PO SCH (11:02)
[2023-09-27] MEDS: Oxybutynin ER 5 MG TAB PO SCH (11:03)
[2023-09-27] MEDS: Chlorthalidone 25 MG TAB PO SCH (11:03)
[2023-09-27] MEDS: Potassium Chloride 8 MEQ TAB PO SCH (11:03)
[2023-09-27] MEDS: Amlodipine 10 MG TAB PO SCH (11:07)
[2023-09-27 11:53] VITALS: TEMP 98.4
[2023-09-27 14:01] VITALS: BP 147/85
[2023-09-29] MEDS ORDERED: FLU VACC QS2023-24(6MOS UP)/PF 60 MCG/0.5 ML SYRINGE IM ONE (22:15)
== END 2023-09-27 14:45 | disposition home or self-care (01) ==
LOC: ERS 15:19 → ERHOLD 20:28 → 2SE 09-26 19:09
PROVIDERS: ADMIT Internal Medicine; ATTEND Family Medicine
DX: R53.1 Weakness (principal); I10 Essential (primary) hypertension; E78.5 Hyperlipidemia, unspecified; D64.9 Anemia, unspecified; G40.909 Epilepsy, unspecified, not intractable, without status epilepticus; E03.9 Hypothyroidism, unspecified; G51.0 Bell's palsy; I25.810 Atherosclerosis of coronary artery bypass graft(s) without angina pectoris; F41.9 Anxiety disorder, unspecified; F32.A Depression, unspecified; E66.01 Morbid (severe) obesity due to excess calories; N40.0 Benign prostatic hyperplasia without lower urinary tract symptoms; F43.10 Post-traumatic stress disorder, unspecified; Z88.1 Allergy status to other antibiotic agents; Z88.8 Allergy status to other drugs, medicaments and biological substances; Z79.899 Other long term (current) drug therapy; Z95.5 Presence of coronary angioplasty implant and graft; Z90.49 Acquired absence of other specified parts of digestive tract; Z98.890 Other specified postprocedural states; Z86.73 Personal history of transient ischemic attack (TIA), and cerebral infarction without residual deficits; Z87.891 Personal history of nicotine dependence; Z79.82 Long term (current) use of aspirin; Z68.41 Body mass index [BMI] 40.0-44.9, adult
CPT/HCPCS: 36415; 36416; 70450; 70496; 70498; 70551; 71045; 80048; 80053; 80061; 82550; 83036; 84443; 84484; 85025; 85610; 85730; 93005; 93306; 95711; 95819; 96374; 96375; G0378; J1200; J1885; J2765; J2930; Q9967

== ENCOUNTER 2024-02-04 15:36 | Observation (INO) | payer OTHER ==
[2024-02-04 16:24] LABS: #Basophils 0.03 10x3/uL (0.0-0.2); %Basophils 0.4 % (0.0-1.0); %Eosinophils 3.2 % (0.0-10.0); %Lymphocytes 26.3 % (21.0-51.0); %Monocytes 7.5 % (0.0-10.0); %Neutrophils 62.3 % (42.0-75.0); Hematocrit 38.4 % (42.0-52.0); Hemoglobin 12.3 g/dL (14.0-18.0); Mean Corpuscular Hemoglobin 28.9 pg (27.0-31.0); Mean Corpuscular Volume 90.1 fL (78.0-98.0); Mean Platelet Volume 9.1 fL (7.4-10.4); Platelet Count 257 10x3/uL (130-400); RBC Distribution Width 14.5 % (11.5-14.5); Red Blood Cell (RBC) Count 4.26 mill/uL (4.70-6.10)
[2024-02-04] MEDS ORDERED: Nitroglycerin 2% Ointment 1 INCH/1 GM Packet ONE (16:45)
[2024-02-04 16:48] LABS: ALT (SGPT) 19 U/L (8-55); AST (SGOT) 19 U/L (5-34); Albumin 3.6 g/dL (3.5-5.0); Alkaline Phosphatase 59 U/L (40-110); Anion Gap 16 mmol/L (10-20); BUN (Urea Nitrogen) 18 mg/dL (8.4-25.7); Bilirubin, Total 0.5 mg/dL (0.2-1.2); Calc. Creatinine Clearance 0 mL/min (70-130); Calcium 9.2 mg/dL (7.8-10.44); Carbon Dioxide 27 mmol/L (22-29); Chloride 106 mmol/L (98-107); Estimated GFR 79; Glucose 111 mg/dL (70-105); Lipase 18 U/L (8-78); Potassium 3.9 mmol/L (3.5-5.1); Protein, Total 6.6 g/dL (6.0-8.3); Sodium 145 mmol/L (136-145); Troponin I 0.021 ng/mL (< 0.028)
[2024-02-04] MEDS ORDERED: Acetaminophen 325 MG TAB PO PRN (18:17)
[2024-02-04] MEDS ORDERED: Lorazepam 2 MG/ML VIAL SLOW IVP PRN (18:23)
[2024-02-04] MEDS ORDERED: Nitroglycerin 0.4 MG TAB (25 Tab Bottle) SL PRN (18:25)
[2024-02-04 18:37] LABS: Magnesium 2.1 mg/dL (1.6-2.6)
[2024-02-04 20:56] VITALS: BMI 43.8
[2024-02-04] MEDS: Atorvastatin Calcium 40 MG TAB PO SCH (21:41)
[2024-02-05 01:58] LABS: #Basophils 0.04 10x3/uL (0.0-0.2); %Basophils 0.5 % (0.0-1.0); %Eosinophils 3.8 % (0.0-10.0); %Lymphocytes 28.9 % (21.0-51.0); %Monocytes 9.4 % (0.0-10.0); %Neutrophils 57.3 % (42.0-75.0); Hematocrit 38.7 % (42.0-52.0); Hemoglobin 12.4 g/dL (14.0-18.0); Mean Corpuscular Hemoglobin 28.6 pg (27.0-31.0); Mean Corpuscular Volume 89.4 fL (78.0-98.0); Mean Platelet Volume 8.8 fL (7.4-10.4); Platelet Count 229 10x3/uL (130-400); RBC Distribution Width 14.4 % (11.5-14.5); Red Blood Cell (RBC) Count 4.33 mill/uL (4.70-6.10)
[2024-02-05 02:52] LABS: Anion Gap 14 mmol/L (10-20); BUN (Urea Nitrogen) 17 mg/dL (8.4-25.7); Calc. Creatinine Clearance 158 mL/min (70-130); Calcium 8.7 mg/dL (7.8-10.44); Carbon Dioxide 24 mmol/L (22-29); Chloride 106 mmol/L (98-107); Estimated GFR 100; Glucose 133 mg/dL (70-105); Potassium 2.9 mmol/L (3.5-5.1); Sodium 141 mmol/L (136-145)
[2024-02-05] MEDS: Levothyroxine Sodium 75 MCG TAB PO SCH (05:11)
[2024-02-05] MEDS: Potassium Chloride 20 MEQ in Premix 1 BAG IVPB SCH (09:01)
[2024-02-05] MEDS: Lisinopril 20 MG TAB PO SCH (09:02)
[2024-02-05] MEDS: Fenofibrate Nanocrystallized 145 MG TAB PO SCH (09:03)
[2024-02-05] MEDS: Potassium Chloride 20 MEQ TAB PO SCH (09:03)
[2024-02-05] MEDS: Isosorbide Mononitrate 20 MG TAB PO SCH (09:03)
[2024-02-05] MEDS: Enoxaparin 40 MG (0.4 mL) SYRINGE SC SCH (09:03)
[2024-02-05] MEDS: Clopidogrel Bisulfate 75 MG TAB PO SCH (09:03)
[2024-02-05] MEDS: OXcarbazepine 150 MG TAB PO SCH (09:03)
[2024-02-05] MEDS: Aspirin 81 mg Enteric Coated Tablet PO SCH (09:03)
[2024-02-05 12:20] VITALS: TEMP 98.1
[2024-02-05 13:42] LABS: Potassium 3.9 mmol/L (3.5-5.1)
[2024-02-05 16:10] VITALS: BP 140/83
[2024-02-05] MEDS ORDERED: Ezetimibe 10 MG TAB PO SCH (21:00)
[2024-02-05] MEDS ORDERED: Atorvastatin Calcium 40 MG TAB PO SCH (21:00)
== END 2024-02-05 16:58 | disposition home or self-care (01) ==
LOC: ERS 15:36 → 2SW 17:44
PROVIDERS: ADMIT Family Medicine; ATTEND Family Medicine
PROC: B246ZZZ Ultrasonography of Right and Left Heart (ICD-10-PCS; principal; 2024-02-05)
DX: R07.9 Chest pain, unspecified (principal); I11.0 Hypertensive heart disease with heart failure; I50.20 Unspecified systolic (congestive) heart failure; E78.5 Hyperlipidemia, unspecified; I25.10 Atherosclerotic heart disease of native coronary artery without angina pectoris; I34.0 Nonrheumatic mitral (valve) insufficiency; E03.9 Hypothyroidism, unspecified; G40.909 Epilepsy, unspecified, not intractable, without status epilepticus; E87.6 Hypokalemia; F41.9 Anxiety disorder, unspecified; F32.A Depression, unspecified; E66.9 Obesity, unspecified; Z68.41 Body mass index [BMI] 40.0-44.9, adult; Z88.1 Allergy status to other antibiotic agents; Z88.8 Allergy status to other drugs, medicaments and biological substances; Z86.73 Personal history of transient ischemic attack (TIA), and cerebral infarction without residual deficits; Z79.899 Other long term (current) drug therapy; Z95.1 Presence of aortocoronary bypass graft; Z90.49 Acquired absence of other specified parts of digestive tract; Z87.891 Personal history of nicotine dependence; Z95.818 Presence of other cardiac implants and grafts
CPT/HCPCS: 36415; 71045; 80048; 80053; 83690; 83735; 83880; 84484; 85025; 93005; 93010; 93306; 94760; 96372; 96374; 96376; G0378; J1650; J3480

== ENCOUNTER 2024-02-15 10:18 | Outpatient (CLI) | payer OTHER | END 2024-02-15 10:19 | disposition home or self-care (01) | LOC: RAD 10:18 | PROVIDERS: ATTEND Internal Medicine Critical Care Medicine | DX: R06.00 Dyspnea, unspecified (principal) | CPT/HCPCS: 71046 ==

== ENCOUNTER 2024-05-07 18:54 | Inpatient (IN) | payer OTHER ==
[2024-05-07 19:52] LABS: #Basophils Less than 0.03 10x3/uL (0.0-0.2); %Basophils 0.1 % (0.0-1.0); %Eosinophils 2.7 % (0.0-10.0); %Lymphocytes 24.4 % (21.0-51.0); %Monocytes 9.5 % (0.0-10.0); %Neutrophils 63.1 % (42.0-75.0); Hematocrit 35.9 % (42.0-52.0); Hemoglobin 11.4 g/dL (14.0-18.0); Mean Corpuscular HGB CONC 31.8 g/dL (32.0-36.0); Mean Corpuscular Hemoglobin 28.9 pg (27.0-31.0); Mean Corpuscular Volume 91.1 fL (78.0-98.0); Platelet Count 260 10x3/uL (130-400); RBC Distribution Width 14.5 % (11.5-14.5); Red Blood Cell (RBC) Count 3.94 mill/uL (4.70-6.10)
[2024-05-07 20:06] LABS: ALT (SGPT) 15 U/L (8-55); AST (SGOT) 14 U/L (5-34); Albumin 3.2 g/dL (3.5-5.0); Alkaline Phosphatase 50 U/L (40-110); Anion Gap 10 mmol/L (10-20); BUN (Urea Nitrogen) 17 mg/dL (8.4-25.7); Bilirubin, Total 0.6 mg/dL (0.2-1.2); Calc. Creatinine Clearance 0 mL/min (70-130); Calcium 8.9 mg/dL (7.8-10.44); Carbon Dioxide 27 mmol/L (22-29); Chloride 105 mmol/L (98-107); Estimated GFR 73; Globulin 2.5 g/dL (2.4-3.5); Glucose 117 mg/dL (70-105); Potassium 3.9 mmol/L (3.5-5.1); Protein, Total 5.7 g/dL (6.0-8.3); Sodium 138 mmol/L (136-145)
[2024-05-07 20:07] LABS: INR-International Normal Ratio 1.3; PTT 28.5 sec (22.9-36.1); Prothrombin Time 15.9 sec (12.0-14.7)
[2024-05-07] MEDS ORDERED: Acetaminophen 650 MG Suppository PR PRN (21:43)
[2024-05-07] MEDS ORDERED: Lorazepam 2 MG/ML VIAL SLOW IVP PRN (21:43)
[2024-05-07] MEDS ORDERED: Ondansetron PF 4 MG/2 ML Vial IVP PRN (21:43)
[2024-05-07] MEDS ORDERED: Ondansetron ODT 4 MG TAB PO PRN (21:43)
[2024-05-07 23:33] LABS: Troponin I 0.032 ng/mL (< 0.028)
[2024-05-08 02:28] VITALS: BMI 42.3
[2024-05-08 02:58] LABS: #Basophils 0.03 10x3/uL (0.0-0.2); %Basophils 0.4 % (0.0-1.0); %Eosinophils 4.8 % (0.0-10.0); %Lymphocytes 27.2 % (21.0-51.0); %Monocytes 11.4 % (0.0-10.0); %Neutrophils 56.1 % (42.0-75.0); Hematocrit 35.3 % (42.0-52.0); Hemoglobin 11.3 g/dL (14.0-18.0); Mean Corpuscular Hemoglobin 29.1 pg (27.0-31.0); Platelet Count 247 10x3/uL (130-400); RBC Distribution Width 14.7 % (11.5-14.5); Red Blood Cell (RBC) Count 3.88 mill/uL (4.70-6.10)
[2024-05-08 03:16] LABS: Troponin I 0.016 ng/mL (< 0.028)
[2024-05-08 03:34] LABS: Anion Gap 12 mmol/L (10-20); BUN (Urea Nitrogen) 17 mg/dL (8.4-25.7); Calc. Creatinine Clearance 143 mL/min (70-130); Calcium 8.6 mg/dL (7.8-10.44); Carbon Dioxide 24 mmol/L (22-29); Chloride 107 mmol/L (98-107); Estimated GFR 96; Glucose 115 mg/dL (70-105); Potassium 3.4 mmol/L (3.5-5.1); Sodium 140 mmol/L (136-145)
[2024-05-08] MEDS: Levothyroxine Sodium 112 MCG TAB PO SCH (06:04)
[2024-05-08] MEDS ORDERED: Potassium Chloride 20 MEQ TAB PO SCH (07:45)
[2024-05-08] MEDS: Venlafaxine HCl XR 75 MG CAP PO SCH (08:30)
[2024-05-08] MEDS: Isosorbide Mononitrate 20 MG TAB PO SCH (08:30)
[2024-05-08] MEDS: Aspirin 81 mg Enteric Coated Tablet PO SCH (08:31)
[2024-05-08] MEDS: Fenofibrate Nanocrystallized 145 MG TAB PO SCH (08:31)
[2024-05-08] MEDS: Potassium Chloride 20 MEQ TAB PO SCH (08:32)
[2024-05-08] MEDS: Clopidogrel Bisulfate 75 MG TAB PO SCH (08:32)
[2024-05-08] MEDS: Heparin 5,000 UNITS/ML VIAL SC SCH (08:34)
[2024-05-08] MEDS: Gabapentin 400 MG CAP PO SCH (08:38)
[2024-05-08] MEDS: Ezetimibe 10 MG TAB PO SCH (20:05)
[2024-05-08] MEDS: Atorvastatin Calcium 40 MG TAB PO SCH (20:05)
[2024-05-08] MEDS: Lisinopril 20 MG TAB PO SCH (20:05)
[2024-05-09 06:18] LABS: #Basophils Less than 0.03 10x3/uL (0.0-0.2); %Basophils 0.3 % (0.0-1.0); %Eosinophils 4.2 % (0.0-10.0); %Neutrophils 52.2 % (42.0-75.0); Hematocrit 36.4 % (42.0-52.0); Hemoglobin 11.5 g/dL (14.0-18.0); Mean Corpuscular HGB CONC 31.6 g/dL (32.0-36.0); Mean Corpuscular Hemoglobin 28.3 pg (27.0-31.0); Mean Corpuscular Volume 89.7 fL (78.0-98.0); Mean Platelet Volume 9.3 fL (7.4-10.4); Platelet Count 263 10x3/uL (130-400); RBC Distribution Width 14.7 % (11.5-14.5); Red Blood Cell (RBC) Count 4.06 mill/uL (4.70-6.10)
[2024-05-09 06:42] LABS: Anion Gap 10 mmol/L (10-20); BUN (Urea Nitrogen) 17 mg/dL (8.4-25.7); Calc. Creatinine Clearance 126 mL/min (70-130); Calcium 8.8 mg/dL (7.8-10.44); Carbon Dioxide 27 mmol/L (22-29); Chloride 108 mmol/L (98-107); Estimated GFR 83; Glucose 94 mg/dL (70-105); Potassium 3.9 mmol/L (3.5-5.1); Sodium 141 mmol/L (136-145)
[2024-05-09] MEDS ORDERED: Venlafaxine HCl XR 75 MG CAP PO SCH (09:00)
[2024-05-09] MEDS ORDERED: Venlafaxine HCl XR 150 MG CAP PO SCH (09:00)
[2024-05-09] MEDS: Potassium Chloride 8 MEQ TAB PO SCH (09:40)
[2024-05-09] MEDS: OXcarbazepine 300 MG TAB PO SCH (21:39)
[2024-05-10 04:08] LABS: #Basophils 0.04 10x3/uL (0.0-0.2); %Basophils 0.6 % (0.0-1.0); %Eosinophils 5.1 % (0.0-10.0); %Lymphocytes 31.1 % (21.0-51.0); %Neutrophils 51.9 % (42.0-75.0); Hematocrit 36.2 % (42.0-52.0); Hemoglobin 11.5 g/dL (14.0-18.0); Mean Corpuscular HGB CONC 31.8 g/dL (32.0-36.0); Mean Corpuscular Hemoglobin 29.2 pg (27.0-31.0); Mean Corpuscular Volume 91.9 fL (78.0-98.0); Mean Platelet Volume 9.2 fL (7.4-10.4); Platelet Count 272 10x3/uL (130-400); RBC Distribution Width 14.6 % (11.5-14.5); Red Blood Cell (RBC) Count 3.94 mill/uL (4.70-6.10)
[2024-05-10 04:44] LABS: Anion Gap 10 mmol/L (10-20); BUN (Urea Nitrogen) 20 mg/dL (8.4-25.7); Calc. Creatinine Clearance 118 mL/min (70-130); Calcium 8.8 mg/dL (7.8-10.44); Carbon Dioxide 27 mmol/L (22-29); Chloride 107 mmol/L (98-107); Estimated GFR 77; Glucose 105 mg/dL (70-105); Potassium 3.6 mmol/L (3.5-5.1); Sodium 140 mmol/L (136-145)
[2024-05-10] MEDS: OXCARBAZEPINE 150 MG PO SCH (09:54)
[2024-05-10 12:11] VITALS: BP 122/77; TEMP 98.2
== END 2024-05-10 14:35 | disposition home or self-care (01) | DRG 312 ==
LOC: ERS 18:54 → ERHOLD 21:52 → 2SE 05-08 02:19 → OBSVTOIN 05-09 14:29
PROVIDERS: ADMIT Internal Medicine; ATTEND Family Medicine
PROC: 4A00X4Z Measurement of Central Nervous Electrical Activity, External Approach (ICD-10-PCS; principal; 2024-05-09)
DX: R55 Syncope and collapse (principal); I69.854 Hemiplegia and hemiparesis following other cerebrovascular disease affecting left non-dominant side; Z68.41 Body mass index [BMI] 40.0-44.9, adult; I25.10 Atherosclerotic heart disease of native coronary artery without angina pectoris; G40.909 Epilepsy, unspecified, not intractable, without status epilepticus; I10 Essential (primary) hypertension; E78.5 Hyperlipidemia, unspecified; E66.01 Morbid (severe) obesity due to excess calories; E03.9 Hypothyroidism, unspecified; R07.89 Other chest pain; Z79.82 Long term (current) use of aspirin; Z79.899 Other long term (current) drug therapy; I25.2 Old myocardial infarction; E78.00 Pure hypercholesterolemia, unspecified; F41.9 Anxiety disorder, unspecified; F31.9 Bipolar disorder, unspecified; Z95.1 Presence of aortocoronary bypass graft; Z88.8 Allergy status to other drugs, medicaments and biological substances; Z90.49 Acquired absence of other specified parts of digestive tract; Z98.890 Other specified postprocedural states; Z87.891 Personal history of nicotine dependence
CPT/HCPCS: 36415; 36416; 70450; 70496; 70498; 71045; 80048; 80053; 83735; 84146; 84484; 85025; 85610; 85730; 93005; 93306; 93880; 95700; 95711; 95957; 96372; G0378; J1644; Q9967

== ENCOUNTER 2025-02-04 15:55 | Outpatient (CLI) | payer OTHER ==
[2025-02-04 16:24] LABS: #Basophils 0.03 10x3/uL (0.0-0.2); #Eosinophils 0.38 10x3/uL (0.0-0.7); #Monocytes 0.69 10x3/uL (0.11-0.59); #Neutrophils 4.61 10x3/uL (1.40-6.50); %Basophils 0.4 % (0.0-1.0); %Eosinophils 5.0 % (0.0-10.0); %Lymphocytes 24.2 % (21.0-51.0); %Monocytes 9.1 % (0.0-10.0); %Neutrophils 60.9 % (42.0-75.0); Hematocrit 37.2 % (42.0-52.0); Hemoglobin 11.8 g/dL (14.0-18.0); Mean Corpuscular Hemoglobin 28.6 pg (27.0-31.0); Mean Corpuscular Volume 90.1 fL (78.0-98.0); Platelet Count 273 10x3/uL (130-400); Red Blood Cell (RBC) Count 4.13 mill/uL (4.70-6.10); White Blood Cell (WBC) Count 7.57 10x3/uL (4.8-10.8)
[2025-02-04 16:42] LABS: INR-International Normal Ratio 1.2; PTT 27.7 sec (22.9-36.1); Prothrombin Time 15.0 sec (12.0-14.7)
[2025-02-04 16:48] LABS: Glucose, Urine (Dipstick) Normal (Negative); Leukocyte 500 Leu/uL (Negative); Protein, Urine (Dipstick) 50 mg/dL (Neg-Trace); RBC/HPF Greater than 50 HPF (0-3); Specific Gravity, Urine 1.016 (1.002-1.036); WBC/HPF Greater than 50 HPF (0-3)
[2025-02-04 16:51] LABS: Anion Gap 12 mmol/L (10-20); BUN (Urea Nitrogen) 17 mg/dL (8.4-25.7); Calc. Creatinine Clearance 0 mL/min (70-130); Calcium 8.8 mg/dL (7.8-10.44); Carbon Dioxide 28 mmol/L (22-29); Chloride 105 mmol/L (98-107); Glucose 89 mg/dL (70-105); Potassium 3.7 mmol/L (3.5-5.1); Sodium 141 mmol/L (136-145)
[2025-02-04 16:54] LABS: Bacteria/HPF 1+ HPF (None Seen)
== END 2025-02-04 15:56 | disposition home or self-care (01) ==
LOC: LABBT 15:55
PROVIDERS: ATTEND Urology
DX: Z01.812 Encounter for preprocedural laboratory examination (principal); N20.2 Calculus of kidney with calculus of ureter; N13.5 Crossing vessel and stricture of ureter without hydronephrosis; N40.1 Benign prostatic hyperplasia with lower urinary tract symptoms; N39.41 Urge incontinence; N39.43 Post-void dribbling
CPT/HCPCS: 80048; 81001; 85025; 85610; 85730; 87086